=== PATIENT | female | born 1955 | race Caucasian/White ===

== ENCOUNTER 2019-04-07 14:44 | Inpatient (IN) | payer OTHER ==
[~2019-04-07] VITALS: Ht 147.3 cm; Wt 51.6 kg
[2019-04-07 16:02] LABS: BASOPHILS ABSOLUTE AUTO 0.02 K/mm3 (0.00-0.23); BASOPHILS PERCENT AUTO 0 % (0-2); EOSINOPHILS ABSOLUTE AUTO 0.18 K/mm3 (0.00-0.68); EOSINOPHILS PERCENT AUTO 3 % (0-6); Hematocrit 19.1 % (33.0-51.0); Hemoglobin 6.2 g/dL (11.5-16.0); IMMATURE GRAN ABSOLUTE AUTO 0.04 K/mm3 (0.00-0.10); IMMATURE GRAN PERCENT AUTO 1 % (0-1); LYMPHOCYTES PERCENT AUTO 28 % (21-46); MONOCYTES PERCENT AUTO 7 % (4-13); Mean Corpuscular HGB 30.2 pg (26.0-34.0); Mean Corpuscular HGB Conc 32.5 g/dL (31.5-36.5); Mean Corpuscular Volume 93 fL (80-100); Mean Platelet Volume 9.6 fL (9.1-12.4); NEUTROPHILS ABSOLUTE AUTO 3.24 K/mm3 (1.96-9.15); NEUTROPHILS PERCENT AUTO 60 % (41-73); Platelet Count 187 K/mm3 (150-400); RDW Coefficient Variation 15.2 % (11.7-14.2); RDW Standard Deviation 51.8 fL (35.1-46.3); Red Blood Cell Count 2.05 M/mm3 (3.80-5.20); White Blood Cell Count 5.38 K/mm3 (4.00-11.30)
[2019-04-07 16:28] LABS: Magnesium, Blood 1.6 mg/dL (1.6-2.4)
[2019-04-07 17:01] LABS: Alanine Aminotransfer (ALT/SGP 17 U/L (12-78); Albumin, Blood 3.3 g/dL (3.4-5.0); Alk Phos 129 U/L (50-136); Anion Gap 15 mmol/L (6-16); Aspartate Aminotrans (AST/SGOT 20 U/L (12-37); Bilirubin, Total 0.6 mg/dL (0.1-1.0); Blood Urea Nitrogen 117 mg/dL (8-24); Bun/Creatinine Ratio 7.7 (12.0-20.0); CO2, Blood 9 mmol/L (21-32); Calcium, Blood <5.0 mg/dL (8.5-10.1); Chloride, Blood 116 mmol/L (98-108); Globulin, Blood 3.3 g/dL (2.2-4.0); Glomerular Filtration Rate 3 (60-); Glucose, Blood 87 mg/dL (70-99); Potassium, Blood 4.9 mmol/L (3.5-5.5); Sodium, Blood 140 mmol/L (136-145); Total Protein, Blood 6.6 g/dL (6.4-8.2)
[2019-04-07 17:21] LABS: Source, Urine Clean Catch
[2019-04-07 17:24] LABS: Bilirubin, Urine Neg (Neg); Blood, Urine 3+ (Neg); Glucose Qualitative, Urine Neg (Neg); Ketones, Urine Neg (Neg); Leukocyte Esterase, Urine 1+ (Neg); Nitrite, Urine Neg (Neg); Protein, Urine 3+ (Neg); Specific Gravity, Urine 1.015 (1.003-1.022); Urobilinogen, Urine NORM (Normal)
[2019-04-07 17:31] LABS: Appearance, Urine Clear (Clear); Color, Urine Yellow (P-Yellow)
[2019-04-07 17:33] LABS: Bacteria Few /hpf; Squamous Epithelial Cells Few /hpf (Few); Transitional Epithelial Cells Few /hpf (0-Rare)
[2019-04-07] MEDS ORDERED: Prinivil10 MG PO (18:52)
--- NOTE | 2019-04-07 21:30 | NUR ---
ADMIT PT ARRIVES TO PCU 2 FROM ER VIA GURNEY. TRANSFERS WITH STANDBY ASSIST TO HOSPITAL BED WITHOUT DIFFICULTY. PT AOX4. DENIES DIZZINESS/LIGHTHEADEDNESS, OR PAIN AT THIS TIME. BP IS ELEVATED, BUT HAS DECREASED FROM PREVIOUS BPs IN ER. PT SLIGHTLY DYSPNEIC ON EXERTION, O2 SATS OF 99% ON RA. LUNG SOUNDS CLEAR THROUGHOUT. MAEW, NO NOTED WEAKNESS. PPP. NO EDEMA. CARDIAC RHYTHM IS SINUS TACH WITH A RATE OF 110 PER MARKETING DEVELOPER. PT REPORTS THAT SHE HAS FELT FATIGUED OVER LAST COUPLE OF MONTHS AND HAS PROGRESSIVELY GOTTEN MORE SO. REPORTS WEIGHT LOSS OF 40-50 LBS OVER LAST COUPLE MONTHS WITH APPETITE LOSS. ONE UNIT OF PRBCs BROUGHT WITH PT FROM ER AND WILL BEGIN TRANSFUSION MOMENTARILY- BLOOD CONSENT SIGNED AND PLACED IN CHART. PT ORIENTED TO ROOM AND CALL LIGHT SYSTEM. ENCOURAGED TO CALL FOR ASSIST WITH AMBULATION. WILL CONTINUE WITH ADMISSION AND MONITORING. BED IN LOW POSITION,CALL LIGHT IN REACH.
--- NOTE | 2019-04-07 23:30 | NUR ---
PROVIDER TO ROOM DR MCMAHAN TO PT ROOM FOR CONSULTATION AND ASSESSMENT. ORDERED BLADDER SCAN AND REQUESTING RESULTS. PT HAS 124 ML IN BLADDER AT THIS TIME. VERBAL ORDERS RECEIVED FOR 50 MEQ SODIUM BICARB ONE TIME AND TO BEGIN SODIUM BICARB DRIP. WILL INPUT ORDERS AND ADMINISTER.
[2019-04-08 04:08] LABS: Hemoglobin 9.1 g/dL (11.5-16.0)
[2019-04-08 04:32] LABS: CPK Creatine Kinase 431 U/L (26-193); Magnesium, Blood 1.4 mg/dL (1.6-2.4)
[2019-04-08 04:33] LABS: Alanine Aminotransfer (ALT/SGP 17 U/L (12-78); Albumin, Blood 2.8 g/dL (3.4-5.0); Albumin/Globulin Ratio 0.9 (0.8-1.8); Alk Phos 107 U/L (50-136); Anion Gap 18 mmol/L (6-16); Aspartate Aminotrans (AST/SGOT 18 U/L (12-37); Bilirubin, Direct 0.1 mg/dL (0.0-0.3); Bilirubin, Indirect 0.3 mg/dL (0.1-0.7); Bilirubin, Total 0.4 mg/dL (0.1-1.0); Blood Urea Nitrogen 114 mg/dL (8-24); CO2, Blood 12 mmol/L (21-32); Chloride, Blood 116 mmol/L (98-108); Globulin, Blood 3.1 g/dL (2.2-4.0); Glucose, Blood 78 mg/dL (70-99); Potassium, Blood 4.2 mmol/L (3.5-5.5); Sodium, Blood 146 mmol/L (136-145); Total Protein, Blood 5.9 g/dL (6.4-8.2)
[2019-04-08 04:41] LABS: Bun/Creatinine Ratio 7.9 (12.0-20.0); Calcium, Blood 5.2 mg/dL (8.5-10.1); Glomerular Filtration Rate 3 (60-); Phosphorus, Blood 9.2 mg/dL (2.5-4.9)
--- NOTE | 2019-04-08 06:07 | NUR ---
SHIFT SUMMARY PT HAS REMAINED AOX4 THROUGHOUT SHIFT. PLEASANT AND COOPERATIVE WITH CARE. PT MEDICATED ONCE FOR HYPERTENSION THAT DECREASED WITH ORDERED MEDICATION, ALL OTHER VSS. PT AMBULATES WITH STANDBY ASSIST TO RESTROOM WITHOUT DIFFICULTY. PT RECEIVED TWO UNITS PRBCs LAST NIGHT, TOLERATED WELL. LUNG SOUNDS REMAINED T/O NIGHT AND CLEAR POST TRANSFUSIONS. PT REPORTS THAT SHE IS BEGINNING TO FEEL BETTER. NO OTHER CHANGES NOTED FROM INITIAL ASSESSMENT. WILL CONTINUE TO MONITOR AND REPORT TO ONCOMING SHIFT RN. BED IN LOW POSITION, CALL LIGHT IN REACH.
--- NOTE | 2019-04-08 09:15 | NUR ---
NURSING PCU DAYSHIFT: Assumed care of pt at approx 0700. A/O, very pleasant and cooperative w/care. Denies any pain/discomfort at rest. Ambulates w/one staff assist for line management, c/o general weakness. Skin is intact w/no breakdown noted. Tele in place at initial assessment, NSR w/no c/o CP/pressure, SBP 150's prior to a.m. meds, no noted edema. L/S cta t/o O2 sat stable on RA, denies dyspnea, no noted cough. Abd SNT, BT+, voiding w/o difficulty. PIV x2, sodium bicarb infusing at 150cc/hr, mag and calcium gluconate riders infused as ordered. No s/s of acute distress at this time. Seen by manager food and PMD, new d/o received. Pt changed to medical status w/o tele. Denies any current needs or questions regarding plan of care, call light in reach, cont to monitor for any changes.
--- NOTE | 2019-04-08 10:52 | NUR ---
NURSING PCU TRANSFER SUMMARY: No acute changes noted t/o a.m. Seen by PMD, changed to medical status w/o tele. Room assignment received, awaiting report to accepting RN. Brandon to monitor until transfer is completed.
--- NOTE | 2019-04-08 12:15 | NUR ---
PT ARRIVED TO THE MEDICAL FLOOR FROM THE PCU A/OX3, PLEASANT AND COOPERATIVE UP WITH MINIMAL ASSISTANCE, THE PT WAS ORIENTED TO THE ROOM CALL SYSTEM AND LAYOUT, IV FLUIDS RESTARTED, CALL LIGHT IN REACH PT APPEARS TO BE BREATHING EASILY ON RA, DENIES PAIN, I AGREE WITH THE AM ASSESSMENT PERFORMED BY THE SKIRT PANEL ASSEMBLER LEANNE
[2019-04-08 14:15] LABS: Stool Occult Blood Guaiac 1 Neg (Neg)
--- NOTE | 2019-04-08 16:11 | NUR ---
PT IS A/OX3, PLEASANT AND COOPERATIVE, THE PT IS UP WITH STANDBY ASSIST, THE PT DENIES HAVING ANY PAIN AT THIS TIME, THE PT APPEARS TO BE BREATHING EASILY ON RA, THE PT WAS A TRANSFER UP FROM THE PCU TODAY, CALCIUM GLUCONATE AND MAG RIDER WAS GIVEN IN THE PCU PRIOR TO THE TRANSFER, TELE WAS DISCONTINUED, CALL LIGHT IN REACH, WILL CONTINUE TO MONITOR FOR CHANGES
[2019-04-09 05:57] LABS: Hemoglobin 8.7 g/dL (11.5-16.0)
[2019-04-09 06:21] LABS: Magnesium, Blood 1.5 mg/dL (1.6-2.4)
[2019-04-09 06:33] LABS: Albumin, Blood 2.5 g/dL (3.4-5.0); Anion Gap 16 mmol/L (6-16); Blood Urea Nitrogen 108 mg/dL (8-24); Bun/Creatinine Ratio 8.2 (12.0-20.0); CO2, Blood 24 mmol/L (21-32); Chloride, Blood 102 mmol/L (98-108); Glomerular Filtration Rate 3 (60-); Glucose, Blood 114 mg/dL (70-99); Potassium, Blood 3.2 mmol/L (3.5-5.5); Sodium, Blood 142 mmol/L (136-145)
[2019-04-09 06:34] LABS: Calcium, Blood <5.0 mg/dL (8.5-10.1)
[2019-04-09 06:36] LABS: Phosphorus, Blood 8.2 mg/dL (2.5-4.9)
--- NOTE | 2019-04-09 07:00 | NUR ---
SHIFT SUMMARY PT IS A 63 Y/O FEMALE, ADMITTED FOR FRANNY. SHE IS A&O X 4, AND A SBA IN THE ROOM. PT WAS MEDICATED ONCE FOR NAUSEA DURING THE NIGHT WITH PRN ZOFRAN, WHICH CONTROLLED THE NAUSEA WELL. NO COMPLAINTS OF ACUTE PAIN OR SOB. PT RECEIVING D5 + SODIUM BICARB AT 100 ML/HR. VITAL SIGNS STABLE. PT SLEPT WELL DURING THE NIGHT. NO OTHER ACUTE CHANGES NOTED. REPORT GIVEN TO ONCOMING RN.
--- NOTE | 2019-04-09 15:51 | NUR ---
PT IS A/OX3, PLEASANT AND COOPERATIVE, THE PT IS UP WITH MINIMAL ASSIST TO THE BATHROOM, THE PT THIS AM HAD N/V ABOUT 150CC EMISIS, AT BREAKFAST TIME, ZOFRAN WAS GIVEN X1, THE PT DENIES ANY PAIN AND APPEARS TO BE BREATHING EASILY ON RA, THE PT WAS GIVEN ELECTROLYTE REPLACEMENT TODAY AND APPEARS TO HAVE TOLERATED IT WELL, THE PT LOPEZ A CT KUB DONE THIS AFTERNOON, THE PT WAS UP FOR A SHOWER TODAY, CALL LIGHT IN REACH, PT RESTING IN BED AT THIS TIME
--- NOTE | 2019-04-09 19:57 | NUR ---
1930: ASSUMED CAR OF PATIENT. PT SITTING IN BED IN NO APPARENT DISTRESS. RESP EVEN AND UNLABORED. DENIES PAIN/SOB/NAUSEA. #20 LAC C/D/I. PT CALM AND COOPERATIVE WITH CARE, ABLE TO MAKE HER NEEDS KNOWN. CALL MCGOWAN WITHIN REACH.
[2019-04-10 04:45] LABS: Hematocrit 26.5 % (33.0-51.0)
[2019-04-10 05:07] LABS: Magnesium, Blood 1.6 mg/dL (1.6-2.4)
[2019-04-10 05:35] LABS: Albumin, Blood 2.6 g/dL (3.4-5.0); Anion Gap 14 mmol/L (6-16); Blood Urea Nitrogen 101 mg/dL (8-24); Bun/Creatinine Ratio 8.1 (12.0-20.0); CO2, Blood 25 mmol/L (21-32); Calcium, Blood 5.8 mg/dL (8.5-10.1); Chloride, Blood 102 mmol/L (98-108); Glomerular Filtration Rate 3 (60-); Glucose, Blood 90 mg/dL (70-99); Phosphorus, Blood 6.9 mg/dL (2.5-4.9); Potassium, Blood 3.8 mmol/L (3.5-5.5); Sodium, Blood 141 mmol/L (136-145)
--- NOTE | 2019-04-10 08:00 | NUR ---
PT PLEASANT COOP FOLLOWS COMMANDS WELL. A/O DENIES PAIN. H/R REG, NO MURMER NOTED. NO TELE. LUNGS CLEAR RESP EASY, UNLABORED. ON R.A. BT X4 LAST BM THIS AM. VOIDS INDEPENDANT TO BATHROOM. BED IN LOW POSITOIN, CALL LITE IN REACH, CALLS APPROP. NO OTHER CONCERNS AT THIS TIME.
--- NOTE | 2019-04-10 18:33 | NUR ---
PT PLEASANT T/O DAY. DENIES PAIN. AHS BEEN WALKING IN ROOM PER PT. HOPEFUL TO GO HOME TOMORROW. NO OTHER CONCERNS AT THIS TIME. BED IN LOW POSITION, CALL LITE IN REACH, CALLS APPROP
[2019-04-11 04:40] LABS: Hemoglobin 8.6 g/dL (11.5-16.0)
[2019-04-11 04:58] LABS: Magnesium, Blood 1.5 mg/dL (1.6-2.4)
[2019-04-11 05:06] LABS: Albumin, Blood 2.5 g/dL (3.4-5.0); Anion Gap 14 mmol/L (6-16); Blood Urea Nitrogen 98 mg/dL (8-24); Bun/Creatinine Ratio 8.2 (12.0-20.0); CO2, Blood 22 mmol/L (21-32); Calcium, Blood 6.8 mg/dL (8.5-10.1); Chloride, Blood 105 mmol/L (98-108); Glomerular Filtration Rate 3 (60-); Glucose, Blood 86 mg/dL (70-99); Phosphorus, Blood 6.4 mg/dL (2.5-4.9); Potassium, Blood 4.2 mmol/L (3.5-5.5); Sodium, Blood 141 mmol/L (136-145)
--- NOTE | 2019-04-11 05:30 | NUR ---
1930: ASSUMED CARE OF PATIENT. PT APPEARS TO BE FEELING BETTER TODAY. PLEASENT AND COOPERATIVE AND IN NO APPARENT DISTRESS. 0530: RECEIVED cVALUE: CREATININE = 12.0, PRIOR 12.4 RECEIVED NEW ORDERS PER EMAR
--- NOTE | 2019-04-11 18:11 | NUR ---
SHIFT SUMMARY PATIENT IS PLEASANT, ALERT AND ORINTED. NO ACUTE CONCERNS AT THIS TIME. SHE IS CURRENTLY INDEPENDENT IN THE ROOM, PLACED ON IV FLUIDS. SHE WAS DISCONNECTED TO HAVE A SHOWER TODAY. NO HANGES FROM THIS MORNING AT THIS TIME.
--- NOTE | 2019-04-12 04:06 | NUR ---
SHIFT SUMMARY: 63 Y/O FEMALE RESTED COMFORTABLY ALL SHIFT, DENIES PAIN OR NAUSEA, AMBULATED BATHROOM AND BACK WITHOUT ISSUE, VOIDING WITHOUT ISSUES, CHEERFUL, BED IN LOW POSITION, CALL LIGHT AT SIDE.
[2019-04-12 05:15] LABS: Hematocrit 27.1 % (33.0-51.0); Hemoglobin 8.9 g/dL (11.5-16.0)
[2019-04-12 05:39] LABS: Magnesium, Blood 1.7 mg/dL (1.6-2.4)
[2019-04-12 05:54] LABS: Albumin, Blood 2.6 g/dL (3.4-5.0); Anion Gap 13 mmol/L (6-16); Blood Urea Nitrogen 100 mg/dL (8-24); Bun/Creatinine Ratio 8.5 (12.0-20.0); CO2, Blood 21 mmol/L (21-32); Calcium, Blood 7.5 mg/dL (8.5-10.1); Chloride, Blood 106 mmol/L (98-108); Glomerular Filtration Rate 4 (60-); Glucose, Blood 98 mg/dL (70-99); Phosphorus, Blood 6.3 mg/dL (2.5-4.9); Potassium, Blood 4.5 mmol/L (3.5-5.5); Sodium, Blood 140 mmol/L (136-145)
--- NOTE | 2019-04-12 18:28 | NUR ---
SHIFT SUMMARY PATIENT IS VERY PLEASANT, MUCH MORE ALERT TODAY THAN YESTERDAY. SHE IS INDEPENDENT IN THE ROOM, AND HAS A 24 HOUR URINE COLLECTION THAT WAS STARTED AT 1500 ON 04/12/19. IT WILL NEED TO BE COLLECTED AND SENT TO THE LAB AT 1500 ON 04/13/19. CURRENTLY THE PATIENT'S SKIN LOOKS GOOD AND THERE ARE NO CONCERNS WITH HER MUSCULOSKELETAL SYSTEM. SHE DENIES PAIN AT THIS TIME.
--- NOTE | 2019-04-13 04:16 | NUR ---
SHIFT SUMMARY: 63 Y/O FEMALE RESTED COMFORTABLY IN BED WITH NO C/O PAIN OR NAUSEA, 24 HOUR URINE IN PROGRESS (DUE TO BE COMPLETED TODAY AT 1500), DENIES PAIN OR NAUSEA, HAPPY AND COOPERATIVE, GAIT STEADY AND EVEN, BED LOW POSITION, CALL LIGHT AT SIDE.
[2019-04-13 04:47] LABS: Hematocrit 29.1 % (33.0-51.0); Hemoglobin 9.5 g/dL (11.5-16.0)
[2019-04-13 05:13] LABS: Magnesium, Blood 1.7 mg/dL (1.6-2.4)
[2019-04-13 05:17] LABS: Albumin, Blood 2.8 g/dL (3.4-5.0); Anion Gap 14 mmol/L (6-16); Blood Urea Nitrogen 98 mg/dL (8-24); Bun/Creatinine Ratio 9.1 (12.0-20.0); CO2, Blood 18 mmol/L (21-32); Chloride, Blood 108 mmol/L (98-108); Glomerular Filtration Rate 4 (60-); Glucose, Blood 94 mg/dL (70-99); Phosphorus, Blood 6.1 mg/dL (2.5-4.9); Potassium, Blood 4.8 mmol/L (3.5-5.5); Sodium, Blood 140 mmol/L (136-145)
--- NOTE | 2019-04-13 18:41 | NUR ---
PATIENT WENT OUT FOR AN CT OF THE KIDNEY. CONSULT PLACED TO DR. VILLALTA, NO ACUTE ISSUES NOTED FOR PATIENT.
[2019-04-14 04:42] LABS: Hematocrit 26.3 % (33.0-51.0); Hemoglobin 8.7 g/dL (11.5-16.0)
[2019-04-14 05:05] LABS: Magnesium, Blood 1.5 mg/dL (1.6-2.4)
--- NOTE | 2019-04-14 05:05 | NUR ---
SHIFT SUMMARY: PT A&O X4. BP ELEVATED T/O SHIFT- RANGING FROM 160-180 SYSTOLIC. GIVEN SCHED 2100 METOPROLOL AND HYDRALAZINE PER EMAR. INDEPENDENT IN ROOM AND VOIDING WELL. FLUIDS INFUSING AT 50/HR PER EMAR. PT C/O UPPER EPIGASTRIC PRESSURE AND COUGH THIS MORNING. REPORTS THAT THE COUGH STARTED LAST NIGHT. LUNGS CLEAR TO AUSCULTATION. PT DENIES SOB AND CHEST PAIN. NO SWELLING OR EDEMA NOTED. CREATNINE REMAINS HIGH THIS MORNING WITH RESULT OF 10.7.
[2019-04-14 05:07] LABS: Albumin, Blood 2.7 g/dL (3.4-5.0); Anion Gap 11 mmol/L (6-16); Blood Urea Nitrogen 104 mg/dL (8-24); Bun/Creatinine Ratio 9.7 (12.0-20.0); CO2, Blood 22 mmol/L (21-32); Calcium, Blood 7.7 mg/dL (8.5-10.1); Chloride, Blood 106 mmol/L (98-108); Glomerular Filtration Rate 4 (60-); Glucose, Blood 100 mg/dL (70-99); Phosphorus, Blood 5.6 mg/dL (2.5-4.9); Potassium, Blood 4.7 mmol/L (3.5-5.5); Sodium, Blood 139 mmol/L (136-145)
--- NOTE | 2019-04-14 07:57 | NUR ---
TELEPHONE CALL TO HUMZA AND TO DR VILLALTA CELL - LEFT MESSAGES THAT DR MCMAHAN WANTS TO TT DR VILLALTA PRIOR TO PT BEING TAKEN FOR PROCEDURE.
--- NOTE | 2019-04-14 19:10 | NUR ---
SHIFT SUMMARY PT A&OX4, VSS. DR VILLALTA CONSULTED W/DR MCMAHAN AND PT TODAY; PLAN FOR NEPHROSTOMY TUBE L SIDE TOMORROW, PT TO BE NPO AFTER MIDNIGHT. INDEPENDENT TO BRP, VOIDING WELL. IVONNE RENAL DIET, DENIES N&V. DENIES PAIN AT THIS TIME. REPORT GIVEN TO ANISH RUCKER.
[2019-04-15 05:12] LABS: Hematocrit 26.3 % (33.0-51.0); Hemoglobin 8.5 g/dL (11.5-16.0)
[2019-04-15 05:39] LABS: Magnesium, Blood 1.9 mg/dL (1.6-2.4)
[2019-04-15 06:05] LABS: Albumin, Blood 2.6 g/dL (3.4-5.0); Anion Gap 11 mmol/L (6-16); Blood Urea Nitrogen 103 mg/dL (8-24); Bun/Creatinine Ratio 9.4 (12.0-20.0); CO2, Blood 25 mmol/L (21-32); Calcium, Blood 7.6 mg/dL (8.5-10.1); Chloride, Blood 104 mmol/L (98-108); Glomerular Filtration Rate 4 (60-); Glucose, Blood 91 mg/dL (70-99); Phosphorus, Blood 5.8 mg/dL (2.5-4.9); Sodium, Blood 140 mmol/L (136-145)
--- NOTE | 2019-04-15 06:39 | NUR ---
SHIFT SUMMARY PT IS A 63 Y/O FEMALE, ADMITTED FOR ACUTE KIDNEY INJURY. SHE IS A&O X 4, AND INDEPENDENT IN THE ROOM. NO COMPLAINTS OF PAIN, NAUSEA OR SOB, AND PT SLEPT WELL THROUGH THE NIGHT. PT RECEIVED CONTINUOUS FLUIDS, D5 + SODIUM BICARB AT 50 ML/HR. PT HAS BEEN NPO SINCE MIDNIGHT IN PREP FOR A L NEPHROSTOMY PLACEMENT TODAY. BP WAS SLIGHTLY ELEVATED AT 167/88 AT PM VITALS, BUT CAME DOWN TO 147/94 WITH SCHEDULED BP MEDS. ALL OTHER VITALS STABLE. NO OTHER ACUTE CHANGES IN PT CONDITION NOTED. WILL CONTINUE TO MONITOR AND TREAT PER EMAR UNTIL HAND OFF TO DAY SHIFT.
[2019-04-15 08:08] LABS: ANTIGLOMERULAR BM AB 3 units (0-20)
[2019-04-15 14:07] LABS: ANA DIRECT Negative (Negative); ANTIMYELOPEROXIDASE (MPO) ABS <9.0 U/mL (0.0-9.0); ANTIPROTEINASE 3 (PR-3) ABS 8.5 U/mL (0.0-3.5); ATYPICAL PANCA <1:20 titer (Neg:<1:20); CYTOPLASMIC (C-ANCA) <1:20 titer (Neg:<1:20); PERINUCLEAR (P-ANCA) <1:20 titer (Neg:<1:20)
[2019-04-15 15:07] LABS: A/G RATIO 1.2 (0.7-1.7); ALBUMIN 3.1 g/dL (2.9-4.4); ALPHA-1-GLOBULIN 0.3 g/dL (0.0-0.4); ALPHA-2-GLOBULIN 0.9 g/dL (0.4-1.0); BETA GLOBULIN 0.7 g/dL (0.7-1.3); GAMMA GLOBULIN 0.7 g/dL (0.4-1.8); GLOBULIN, TOTAL 2.7 g/dL (2.2-3.9); IMMUNOGLOBULIN A, QN, SERUM 263 mg/dL (87-352); IMMUNOGLOBULIN G, QN, SERUM 684 mg/dL (700-1600); IMMUNOGLOBULIN M, QN, SERUM 51 mg/dL (26-217); M-SPIKE Not Observed g/dL (Not Observed); PROTEIN, TOTAL, SERUM 5.8 g/dL (6.0-8.5)
--- NOTE | 2019-04-15 19:43 | NUR ---
SHIFT SUMMARY PATIENT A&0X4, UP AD MONTEZ IN ROOM. PT LEFT FLOOR FOR NEPHROSTOMY TUBE PLACEMENT BUT CAME BACK WITHOUT TUBE PLACED. RN WAS INFORMED THAT LIKELY THEY WILL TRY TO PLACE IT AGAIN WITH CT ASSISTANCE. 4 SMALL SLIT INCISIONS ON L FLANK LILI, NO DRAINAGE, TENDER, WITH SMALL AMOUNT OF SWELLING AROUND THEM. WHEN PT RETURNED TO ROOM AFTER PROCEDURE, BP WAS HIGH. 184/99 MANUALLY, DR SINGLETON WAS NOTIFIED. SCHEDULED AM NORVASC AND METOPROLOL THAT WERE HELD PREVIOUSLY, WERE GIVEN. BP CAME DOWN TO 159/96 WHICH IS AROUND THE PATIENT'S BASELINE. DR SINGLETON NOTIFIED. COBAN AROUND IV SITE CHANGED. D5/NA BICARB INFUSING. PT STATES SHE HAD A BM TODAY. URINE OUTPUT IS ADEQUATE, URINE HAS BLOOD AND BLOODY CLOTS IN IT.
[2019-04-16 01:58] LABS: Hematocrit 29.8 % (33.0-51.0); Hemoglobin 9.7 g/dL (11.5-16.0)
[2019-04-16 02:01] LABS: Magnesium, Blood 1.9 mg/dL (1.6-2.4)
[2019-04-16 02:03] LABS: Albumin, Blood 2.9 g/dL (3.4-5.0); Anion Gap 10 mmol/L (6-16); Blood Urea Nitrogen 102 mg/dL (8-24); Bun/Creatinine Ratio 9.2 (12.0-20.0); CO2, Blood 27 mmol/L (21-32); Calcium, Blood 7.9 mg/dL (8.5-10.1); Chloride, Blood 102 mmol/L (98-108); Glomerular Filtration Rate 4 (60-); Glucose, Blood 77 mg/dL (70-99); Phosphorus, Blood 6.1 mg/dL (2.5-4.9); Potassium, Blood 4.7 mmol/L (3.5-5.5); Sodium, Blood 139 mmol/L (136-145)
--- NOTE | 2019-04-16 03:36 | NUR ---
~0135 STATES TUBING MUST HAVE BEEN WRAPPED AROUND BLANKETS AND SUBSEQUENTLY PULLED OUT IV
--- NOTE | 2019-04-16 04:50 | NUR ---
SHIFT SUMMARY A/O, ABLE TO MAKE NEEDS KNOWN. COOPERATIVE WITH CARE. CALLS AND ANSWERS QUESTIONS APPROPRIATELY. NO C/O PAIN/DISCOMFORT. HAS BEEN NPO THROUGHOUT THE NIGHT; PREVIOUS SHIFT REPORT STATED THAT PROCEDURE 04/15/[address] NEPHROSTOMY TUBE WAS UNSUCCESSFUL. POSSIBILITY THAT THE TUBE MIGHT BE PLACED UNDER CT GUIDANCE TODAY 04/16/19. HYPERTENSIVE THIS AM; MEDICATED PER EMAR. WILL RE-CHECK TO VERIFY DOWN TREND. NO ACUTE CHANGES OVERNIGHT. UP INDEPENDENTLY TO BATHROOM. NEW IV PLACED TO RFA. CONTINUOUS INFUSION OF NA+ BICARB WITHOUT COMPLICATION. WCTM. REPORT TO ONCOMING RN.
--- NOTE | 2019-04-16 06:03 | NUR ---
0602 PHYSICIAN CORRESPONDENCE CALL PLACED TO DR. MCMAHAN TO NOTIFY OF CRITICAL LAB OF CREATININE; NO ANSWER. DELIVERY PERSON AWARE, IN CASE THERE IS A CALL BACK.
--- NOTE | 2019-04-16 16:11 | NUR ---
ASSUMED CARE: PT REMAINS OUT OF ROOM AT THIS TIME
--- NOTE | 2019-04-16 17:57 | NUR ---
PT RETURNED FROM PROCEDURE. NAUSEATED WITH 100CC YELLOW EMESIS NOTED. DROWSY BUT MAKING NEEDS KNOWN. POST OP VITALS OCCURING AT THIS TIME. LEFT NEPHROSTOMY TUBE WITH MILD MALDONADO DRAINAGE NOTED.
--- NOTE | 2019-04-16 18:05 | NUR ---
SHIFT SUMMARY: PT RETURNED FROM AUTOMOBILE SALES CONSULTANT WITH LEFT NEPHROSTOMY IN PLACE. MALDONADO DRAINAGE NOTED. SITE WITH DRESSING IN PLACE AT THIS TIME. MEDICATED FOR NAUSEA AND PROVIDED ICE. HYPERTENSIVE AT THIS TIME. WILL CONTINUE TO MONITOR WITH POST OP VITALS
--- NOTE | 2019-04-17 04:17 | NUR ---
Shift summary: Pt sleeping most of shift with no c/o discomfort. Nephostomy tube put out about 150 cc fluid. Pt up to BR x 3 during the night.
[2019-04-17 05:08] LABS: Hematocrit 25.2 % (33.0-51.0); Hemoglobin 8.1 g/dL (11.5-16.0)
[2019-04-17 05:42] LABS: Magnesium, Blood 1.9 mg/dL (1.6-2.4)
[2019-04-17 06:01] LABS: Albumin, Blood 2.8 g/dL (3.4-5.0); Anion Gap 12 mmol/L (6-16); Blood Urea Nitrogen 101 mg/dL (8-24); Bun/Creatinine Ratio 9.1 (12.0-20.0); CO2, Blood 26 mmol/L (21-32); Calcium, Blood 7.4 mg/dL (8.5-10.1); Chloride, Blood 102 mmol/L (98-108); Glomerular Filtration Rate 4 (60-); Glucose, Blood 112 mg/dL (70-99); Phosphorus, Blood 6.2 mg/dL (2.5-4.9); Potassium, Blood 4.7 mmol/L (3.5-5.5); Sodium, Blood 140 mmol/L (136-145)
[2019-04-17 12:07] LABS: M-SPIKE, % Not Observed % (Not Observed); PROTEIN,TOTAL,URINE 99.1 mg/dL (Not Estab.)
--- NOTE | 2019-04-17 16:23 | NUR ---
SHIFT SUMMARY PT RESTING QUIETLY, WATCHING TV DURING SHIFT REPORT. ADMITTED FOR FRANNY. PER REPORT, HAD LEFT NEPHROSTOMY TUBE PLACED YESTERDAY. START OF SHIFT DRAINING BLOOD TINGED URINE. 110cc EMPTIED AT 0800. DR MCMAHAN CALLED AT 1300 TO CK ON PT AND WITH NEW ORDERS.L NEPHROSTOMY EMPTIED AGAIN PRIOR TO IV BUMEX. DR MCMAHAN CALLED WITH UPDATE AT 1600, PER ORDERS. NEW ORDERS FOLLOWED; IV BUMEX GIVEN AGAIN. URINE OUT NEPHROSTOMY CLEARED APPROXIMATELY 50% AFTER FIRST BUMEX GIVEN. URINE REMAINS PINK AT TIME OF 2ND DOSE OF BUMEX. IV TO RW STARTED LEAKING. NEW IV PLACED TO TO RFA, INFUSING SODIUM BICARB PER ORDERS. PT HAS BEEN INDEPENDENT TO BTHRM NEEDED. UP TO SHOWER TODAY. VISITOR IN AT THIS TIME. NO C/O. REMAINS HYPERTERSIVE, SEE CHART. MEDS GIVEN PER EMAR. CALL LT IN REACH.
--- NOTE | 2019-04-18 03:58 | NUR ---
Shift summary: Stat creatine ordered by at beginning of shift. Creatinine was 11.1 critical level. No changes from this am. Dr Mabry called with results. Order for bumex and zaroxlyn recieved and given stat as per orders. See i & O. Pt c/o headache and was given tylenol with good results. Nephostomy tube in place. VSS.
--- NOTE | 2019-04-18 04:35 | NUR ---
BP = 174/91. Hydrazaline 20 mg given. Will continue to monitor.
[2019-04-18 05:01] LABS: Hematocrit 25.1 % (33.0-51.0); Hemoglobin 8.1 g/dL (11.5-16.0)
[2019-04-18 05:52] LABS: Magnesium, Blood 1.7 mg/dL (1.6-2.4)
[2019-04-18 06:03] LABS: Albumin, Blood 2.7 g/dL (3.4-5.0); Anion Gap 13 mmol/L (6-16); Blood Urea Nitrogen 95 mg/dL (8-24); Bun/Creatinine Ratio 8.3 (12.0-20.0); CO2, Blood 26 mmol/L (21-32); Calcium, Blood 7.4 mg/dL (8.5-10.1); Chloride, Blood 98 mmol/L (98-108); Glomerular Filtration Rate 4 (60-); Glucose, Blood 98 mg/dL (70-99); Potassium, Blood 4.1 mmol/L (3.5-5.5); Sodium, Blood 137 mmol/L (136-145)
--- NOTE | 2019-04-18 17:32 | NUR ---
SHIFT SUMMARY PATIENT HAVING SEVERAL LOOSE STOOLS. PATIENT STATES IT HAS BEEN SINCE YESTERDAY. L NEPHROSTOMY SITE IS C/D/I, DRAINING CLEAR LIGHT PINK TINGED URINE. PT VOIDING IN THE TOILET FROM R KIDNEY WELL. PT C/O SMALL AMOUNT OF DULL PAIN TO LEFT FLANK, DENIES PAIN MEDS. INSTRUCTED TO CALL IF PAIN WORSENS. PT USES CALL LIGHT APPROPRIATELY. PT DENIES SOB, NAUSEA, OTHER DISCOMFORT. DR MCMAHAN ORDERED PERMACATH PLACEMENT, SURGEON MICROCOMPUTER TECHNICIAN NOTIFIED, MARJ WAS ABLE TO SPEAK TO HIM ON MEDICAL FLOOR. PERMACATH CAN BE PLACED TOMORROW 04/19. PT WILL BE NPO AT MIDNIGHT. FLUID INFUSION STOPPED.
--- NOTE | 2019-04-18 22:17 | NUR ---
BP = 174/91. Hydrazaline 20 mg given
--- NOTE | 2019-04-19 04:23 | NUR ---
Shift summary: Pt given tylenol at hs for headache with adequate relief. Nephostomy tube working well. SEE i & o's. Pt NPO p mn for a mediport placement in am for dialysis. Pt sleeping most of shift.
[2019-04-19 04:37] LABS: Hematocrit 26.5 % (33.0-51.0); Hemoglobin 8.4 g/dL (11.5-16.0)
[2019-04-19 04:59] LABS: Magnesium, Blood 1.8 mg/dL (1.6-2.4)
[2019-04-19 05:29] LABS: Albumin, Blood 2.8 g/dL (3.4-5.0); Anion Gap 13 mmol/L (6-16); Blood Urea Nitrogen 96 mg/dL (8-24); Bun/Creatinine Ratio 8.4 (12.0-20.0); CO2, Blood 28 mmol/L (21-32); Calcium, Blood 7.7 mg/dL (8.5-10.1); Chloride, Blood 99 mmol/L (98-108); Glomerular Filtration Rate 4 (60-); Glucose, Blood 90 mg/dL (70-99); Phosphorus, Blood 6.5 mg/dL (2.5-4.9); Potassium, Blood 4.3 mmol/L (3.5-5.5); Sodium, Blood 140 mmol/L (136-145)
--- NOTE | 2019-04-19 10:15 | NUR ---
FIRST RUN HEMODIALYSIS TODAY PER DR MCMAHAN'S ORDER. RIGHT CHEST CVC PLACED THIS AM BY DR SAWYER AND CONFIRMED BY XRAY. HEPATITIS PROFILE ORDERED WITH AM LABS.
--- NOTE | 2019-04-19 17:46 | NUR ---
SHIFT SUMMARY PATIENT HAD THE PERMACATH PLACEMENT TODAY IN R UPPER CHEST, RIGHT AFTER THAT SHE RECEIVED DIALYSIS. SHE WAS OFF THE FLOOR FROM ABOUT 0815 TO 1300. PATIENT HAS SOME BLOOD UNDER PERMACATH TEGADERM DRESSING, GAUZE PLACED UNDERNEATH IN CASE OF DRAINAGE. PATIENT STATES SHE FEELS GOOD, DENIES DIZZINESS OR SOB. PT C/O 2/10 PAIN TO R CHEST SURGICAL SITE. VSS, BP IMPROVED FROM WHAT IT HAS BEEN THE LAST FEW DAYS. PT STATES HER DIARRHEA ISSUE HAS IMPROVED. PATIENT DENIES NAUSEA AND IS ABLE TO EAT SOME LUNCH, HOWEVER IN THE LAST FEW WEEKS/MONTHS SHE HAS HAD FREQUENT NAUSEA.
[2019-04-20 04:45] LABS: Hemoglobin 7.6 g/dL (11.5-16.0)
[2019-04-20 05:05] LABS: Albumin, Blood 2.5 g/dL (3.4-5.0); Anion Gap 9 mmol/L (6-16); Blood Urea Nitrogen 58 mg/dL (8-24); Bun/Creatinine Ratio 7.3 (12.0-20.0); CO2, Blood 31 mmol/L (21-32); Calcium, Blood 7.8 mg/dL (8.5-10.1); Chloride, Blood 99 mmol/L (98-108); Creatinine, Blood 7.93 mg/dL (0.40-1.00); Glomerular Filtration Rate 5 (60-); Glucose, Blood 90 mg/dL (70-99); Magnesium, Blood 1.7 mg/dL (1.6-2.4); Phosphorus, Blood 4.7 mg/dL (2.5-4.9); Sodium, Blood 139 mmol/L (136-145)
--- NOTE | 2019-04-20 06:03 | NUR ---
Shift summary: Pt did well overnight. States she's feeling beter. Creatinine down to 7.9. permacath site clean dry and intact. Neprostomy tube in place draing light pink urine. Pt anticipating a d/c today if dialysis can be arranged on a holiday,.
--- NOTE | 2019-04-20 09:19 | NUR ---
PT TAKEN TO DIALYSIS AT 0915, WHEELED DOWN IN BED.
--- NOTE | 2019-04-20 16:56 | NUR ---
PT HAS BEEN AOX4 AND COOPERATIVE OF CARE.INDEPENDENT IN ROOM AND CALLS APPROPRIATELY. PT WAS OUT OF HER ROOM FOR DIALYSIS FOR THE EARLIER PART OF THE DAY. SINCE ARRIVING BACK PT HAS BEEN RESTING IN BED. PT DID REPORT PAIN AROUND HER L NEPHROSTOMY BAG. BAG WAS EMPTIED AND PT TREATED PER EMAR. PT REPORTED THE TREATMENT WAS EFFECTIVE AT THIS TIME. WILL CONTINUE TO MONITOR.
[2019-04-21 04:26] LABS: Hematocrit 33.7 % (33.0-51.0)
[2019-04-21 04:48] LABS: Albumin, Blood 2.7 g/dL (3.4-5.0); Anion Gap 8 mmol/L (6-16); Blood Urea Nitrogen 34 mg/dL (8-24); Bun/Creatinine Ratio 6.2 (12.0-20.0); CO2, Blood 31 mmol/L (21-32); Calcium, Blood 8.9 mg/dL (8.5-10.1); Chloride, Blood 97 mmol/L (98-108); Creatinine, Blood 5.52 mg/dL (0.40-1.00); Glomerular Filtration Rate 8 (60-); Glucose, Blood 98 mg/dL (70-99); Magnesium, Blood 1.7 mg/dL (1.6-2.4); Phosphorus, Blood 3.6 mg/dL (2.5-4.9); Potassium, Blood 3.8 mmol/L (3.5-5.5); Sodium, Blood 136 mmol/L (136-145)
--- NOTE | 2019-04-21 06:04 | NUR ---
SHIFT SUMMARY: PATIENT HAS BEEN AOX3 COOPERATIVE AND INDEPENDANT IN THE ROOM. NEPHROSTOMY TUBE ATTACHED TO DRAINAGE BAG WITH PINK TINGED URINE, PATENT AND DRAINING. REPORTS MILD PAIN AROUND THE NEPHROSTOMY TUBE AND OCCATIONALLY RADIATES AROUND TO ABDOMIN. TYLENOL GIVEN AND ALSO GIVEN FOR MILD TEMP THAT REACHED UP TO 100.3 TONIGHT, REASSESS SHOWED 98.7. BP HAS BEEN HYPERTENSIVE REACHING UP TO 184/107 TONIGHT, ASYMPTOMATIC WITH THIS, APROSOLINE WAS GIVEN. REPEAT BP WAS MANUAL AT 160/92, THEN SHE CLIMBED BACK UP TO THE 184/107 WITH MILD FEVER OF 99.2. DISCUSSED WITH CHARGE SPARKLE RUCKER, WHO REPORTS THIS PATIENT HAS BEEN LIVING IN THE [place]IGH LEVELS. TO REPORT THIS TO DR. MCMAHAN WHEN HE ARRIVES IN THE AM. WILL CONTINUE TO MONITOR HER, UNTIL DAY SHIFT RN COMES IN TO SEE HER.
--- NOTE | 2019-04-21 07:12 | NUR ---
ASSUMED CARE OF PT- BEDSIDE REPORT COMPLETED WITH NIGHT CHAIM THOMPSON. PT ALERT AND ORIENTED AND PARTICIPATED IN REPORT. PER REPORT PT HAS A NEW NEPHROSTOMY PATENT AND DRAINING. PT IS INDEPENDENT IN THE ROOM. PT HAS A PERMACATH IN THE RIGHT CHEST THAT HAD THE DRESSING CHANGED YESTERDAY, MORE BLEEDING NOTED UNDER THE NEW DRESSING APPEARS TO HAVE CLOTTED OFF WILL CTM. PT HAD HIGH BPS (SBP 180'S) MEDICATED WITH HYDRALIZINE CAME DOWN TO THE 160'S THEN WENT RIGHT BACK UP PER REPORT. PT HAD A LOW GRADE TEMP HIGH 100.3 MEDICATED WITH TYLENOL AND TEMP AND BP WENT DOWN. PT CURRENTLY IN BED, CALL LIGHT IN REACH NO S&S OF DISTRESS NOTED AT THIS TIME WILL CTM.
--- NOTE | 2019-04-21 12:49 | NUR ---
SHIFT SUMMARY- REPORT GIVEN TO CHAIM LUGO. PT ALERT AND ORINETED AND INDEPENDENT IN THE ROOM. NO C/O PAIN AT THIS TIME. PT COMPLETED DIALYSIS 1500ML OFF EMPTIED NEPHROSTOMY 250ML OF LIGHT PINK URINE. PT CONTINENT OF BLADDER AND JUST VOIDED 300ML OF CLEAR YELLOW URINE. PERMACATH IN LEFT CHEST HAS A BLOOD CLOT UNDER THE DRESSING PER OCCUPATIONAL THERAPIST HOME BASED DELONDA SHE WILL MANAGE THE DRESSING DO NOT CHANGE.
[2019-04-21 13:07] LABS: HBSAG SCREEN Negative (Negative); HEP A AB, IGM Negative (Negative); HEP B CORE AB, IGM Negative (Negative); HEP C VIRUS AB 0.1 (0.0-0.9)
--- NOTE | 2019-04-21 18:51 | NUR ---
no acute changes noted, no current complaints of pain or discomfort noted. permacath dressing is intact with some bleeding noted from placement. nephrostomy is intact and draining pink tinged urine. no other issues is noted.
--- NOTE | 2019-04-22 03:44 | NUR ---
SHIFT SUMMARY PT ADMITTED FOR ACUTE KIDNEY INJURY. FULL CODE. RENAL DIET-120 GRAMS PROTEIN. KEEP HOB GREATER THEN 45 DEGREES WHEN IN BED. PT HAS L NEPHROSTOMY-MAINTAIN WITHOUT KINKS. MAINTAIN DRAINAGE TO GRAVITY COLLECTION SYSTEM. PT IS HD WITH NEW PERMICATH TO R UPPER CHEST. IND IN ROOM. 20G IV TO R FA. TAKES MEDICATIOS WHOLE. HAPARIN FOR DVT PROPHYLAXIS. PT DENIED C/O PAIN SO FAR THIS SHIFT. HAS APPEARED TO SLEEP COMFORTABLY SO FAR THIS SHIFT WITH NO APPARENT SIGNS OF ACUTE DISTRESS. ABLE TO MAKE NEEDS KNOWN AND CALL LIGHT IN REACH.
--- NOTE | 2019-04-22 04:30 | NUR ---
HIGH BP PT WITH BP GREATER THEN 200 SYSTOLIC, 10 MG HYDRALIZINE ADMINISTERED PER EMAR FOR SYSTOLIC GREATER THEN 160. RE-CHECK BP STILL GREATER THEN 190 SYSTOLIC. MD AWARE OF INCREASED BLOOD PRESSURES. WILL CONTINUE TO MONITOR.
[2019-04-22 04:37] LABS: Hemoglobin 12.5 g/dL (11.5-16.0)
[2019-04-22 04:54] LABS: Albumin, Blood 2.7 g/dL (3.4-5.0); Anion Gap 8 mmol/L (6-16); Blood Urea Nitrogen 26 mg/dL (8-24); Bun/Creatinine Ratio 5.5 (12.0-20.0); CO2, Blood 31 mmol/L (21-32); Calcium, Blood 9.2 mg/dL (8.5-10.1); Chloride, Blood 98 mmol/L (98-108); Creatinine, Blood 4.69 mg/dL (0.40-1.00); Glomerular Filtration Rate 10 (60-); Glucose, Blood 97 mg/dL (70-99); Magnesium, Blood 1.9 mg/dL (1.6-2.4); Phosphorus, Blood 3.6 mg/dL (2.5-4.9); Potassium, Blood 3.6 mmol/L (3.5-5.5); Sodium, Blood 137 mmol/L (136-145)
[2019-04-22] MEDS ORDERED: ACET325 PO (14:39)
[2019-04-22] MEDS ORDERED: Amlodipine Besy10 MG PO (14:40)
[2019-04-22] MEDS ORDERED: Calcitriol0.5 MCG PO (14:41)
[2019-04-22] MEDS ORDERED: Oyster Shell C500 MG PO (14:41)
[2019-04-22] MEDS ORDERED: LOSA25 PO (14:42)
[2019-04-22] MEDS ORDERED: HYDR10 PO (14:46)
[2019-04-22] MEDS ORDERED: MAG6464 MG PO (14:49)
[2019-04-22] MEDS ORDERED: METO25 PO (14:51)
[2019-04-22] MEDS ORDERED: ONDA4ODT MM (14:52)
[2019-04-22] MEDS ORDERED: PANT20 PO (14:53)
[2019-04-22] MEDS ORDERED: Vitamin D2000 UNIT PO (14:54)
--- NOTE | 2019-04-22 16:02 | NUR ---
Supportive visit with patient. Review of symptoms, pt complaining of some general discomfort and loose stools then constipation. We reviewed the benefits of dialysis and possible trajectory of care plan and what to prepare for at the clinic. Pt expresses financial stress and wanting to work. Review of fluid balance. review roles of dialysis clincal staff and how supportive they are to their clients
--- NOTE | 2019-04-22 17:19 | NUR ---
SHIFT SUMMARY PT HAS HAD NO COMPLAINTS THIS SHIFT. PT HAD DIALYSIS THIS AM. NEPHROSTOMY PATENT AND DRAINING URINE. URINE IS MORE RED THIS EVENING THEN THIS AM. NO COMPLAINTS OF PAIN THIS SHIFT. BEAD PICKER WORKING ON GETTING PT INSURANCE FOR DISCHARGE TO RECEIVE DIALYSIS AT OUTPT. CALL LIGHT IN REACH. WILL CONTINUE TO MONITOR AND REPORT TO ONCOMING RN.
--- NOTE | 2019-04-23 03:42 | NUR ---
SHIFT SUMMARY: PT IS ALERT AND ORIENTED. PT IS CALM AND COOPERATIVE WITH CARE. PT CALLS APPROPRIATELY. PT IS INDEPENDENT IN THE ROOM. PT DENIES PAIN, NAUSEA, VOMITING, AND SOB. PT SLEPT MUCH OF THE NIGHT WHEN NOT DISTURBED. NO ACUTE CHANGES OR COMPLICATIONS THIS SHIFT. BED IN LOW POSITION, CALL LIGHT WITHIN REACH. WILL CONTINUE TO MONITOR.
[2019-04-23 04:49] LABS: Hematocrit 33.4 % (33.0-51.0); Hemoglobin 10.8 g/dL (11.5-16.0); Mean Corpuscular HGB 29.5 pg (26.0-34.0); Mean Corpuscular HGB Conc 32.3 g/dL (31.5-36.5); Mean Corpuscular Volume 91 fL (80-100); Mean Platelet Volume 9.9 fL (9.1-12.4); Platelet Count 220 K/mm3 (150-400); RDW Coefficient Variation 13.9 % (11.7-14.2); RDW Standard Deviation 47.2 fL (35.1-46.3); Red Blood Cell Count 3.66 M/mm3 (3.80-5.20); White Blood Cell Count 13.05 K/mm3 (4.00-11.30)
[2019-04-23 05:08] LABS: Albumin, Blood 2.5 g/dL (3.4-5.0); Anion Gap 6 mmol/L (6-16); Blood Urea Nitrogen 26 mg/dL (8-24); Bun/Creatinine Ratio 5.4 (12.0-20.0); CO2, Blood 33 mmol/L (21-32); Calcium, Blood 8.8 mg/dL (8.5-10.1); Chloride, Blood 98 mmol/L (98-108); Creatinine, Blood 4.82 mg/dL (0.40-1.00); Glomerular Filtration Rate 10 (60-); Glucose, Blood 93 mg/dL (70-99); Magnesium, Blood 1.9 mg/dL (1.6-2.4); Phosphorus, Blood 3.2 mg/dL (2.5-4.9); Potassium, Blood 3.4 mmol/L (3.5-5.5); Sodium, Blood 137 mmol/L (136-145)
--- NOTE | 2019-04-23 17:18 | NUR ---
called to meet with patient for supportive care. Patient is awaiting setting insurance and follow up outpatient care for dialysis. She is overwhelmed by her future neeeds and inablitiy to work. Review of patient social needs and understanding of cre needs. pt lives in [place] and rents a small house from her employer. She had to quit her second job due to illness. She has no funds and has a car payment. She wanted to discharge so she can go back to work. had a difficult conversation about her health needs. She has not asked her son for help he is employed but has limited funds. She does not want to burden him. Advised her time to rally friends and family to help so she heals better and has support. Review whent three days a week dialysis involves, review of medications and physician appointments. Review of symptoms she has been struggling with nausea. Review strategies of care with case briefer. Helped pt goe through her bills and gave her a list of things to do so she can feel some control and autonomy. She states she feels helpless. Tomorrow ludmila will call her [employer] for benefits and to negotiate rent. she will call [employer]. Weston will call [facility] for advised on unemployment and disability and a food card. suggested she call her [employer] to update them on her illness. She will speak with her family. sales floor manager has been working with perinatal social worker at [facility] suggest she update dr Granado office to see it his staff knows of communtiy resources available until pt intake. will continue to follow pt for supportive care
--- NOTE | 2019-04-23 18:02 | NUR ---
SHIFT SUMMARY PT HAS HAD NO COMPLAINTS THIS SHIFT. NO DIALYSIS TODAY. PT'S LEFT NEPHROSTOMY PUTTING OUT PINK-TINGED YELLOW URINE. NO CHANGES THIS SHIFT. MANAGER GALLERY AND PALLIATIVE CARE RN WORKING ON GETTING PT FINANCIAL ASSISTANCE. PT UNABLE TO DISCHARGE UNTIL ABLE TO GET DIALYSIS AN OUTPT. CALL LIGHT IN REACH. WILL CONTINUE TO MONITOR AND REPORT TO ONCOMING RN.
[2019-04-24 04:34] LABS: Hematocrit 32.7 % (33.0-51.0); Hemoglobin 10.6 g/dL (11.5-16.0); Mean Corpuscular HGB 29.9 pg (26.0-34.0); Mean Corpuscular HGB Conc 32.4 g/dL (31.5-36.5); Mean Corpuscular Volume 92 fL (80-100); Mean Platelet Volume 9.2 fL (9.1-12.4); Platelet Count 215 K/mm3 (150-400); RDW Coefficient Variation 13.8 % (11.7-14.2); RDW Standard Deviation 47.5 fL (35.1-46.3); Red Blood Cell Count 3.54 M/mm3 (3.80-5.20)
--- NOTE | 2019-04-24 04:44 | NUR ---
SUMMARY NO ACUTE CHANGES NOTED THROUGH THE NIGHT. PT IS INDEPENDENT IN THR ROOM. NEPHROSTOMY AND PERMA CATH DRSG'S REMAIN C/D/I. NO C/O PAIN. PT CALLS FOR ASSISTANCE PRN. CALL LIGHT IN REACH.
[2019-04-24 05:00] LABS: Albumin, Blood 2.6 g/dL (3.4-5.0); Anion Gap 9 mmol/L (6-16); Blood Urea Nitrogen 48 mg/dL (8-24); Bun/Creatinine Ratio 6.9 (12.0-20.0); CO2, Blood 29 mmol/L (21-32); Calcium, Blood 8.5 mg/dL (8.5-10.1); Chloride, Blood 98 mmol/L (98-108); Creatinine, Blood 6.97 mg/dL (0.40-1.00); Glomerular Filtration Rate 6 (60-); Glucose, Blood 98 mg/dL (70-99); Phosphorus, Blood 3.9 mg/dL (2.5-4.9); Potassium, Blood 3.5 mmol/L (3.5-5.5); Sodium, Blood 136 mmol/L (136-145)
--- NOTE | 2019-04-24 18:28 | NUR ---
PATIENT A/OX4, UP INDPENDENTLY IN ROOM. VSS, ON RA. WENT DOWN FOR DIALYSIS TODAY, PERM CATH TO R CHEST WNL. PATIENT DENIES ANY PAIN OR DISCOMFORT. L NEPHROSTOMY DRAINING PINK TINGED URINE AND PATIENT CONTINUES TO VOID. SKIN INTACT. CALM AND COOPERATIVE WITH CARE, CALLS APPROPRIATELY FOR ASSISTANCE. AWAITING INSURANCE COVERAGE IN ORDER TO RECEIVE OUTPATIENT DIALYSIS. 20G IV TO R AC PLACED TODAY SO THAT PATIENT COULD RECEIVE IV ROCEPHIN X3 DAYS FOR UTI.
--- NOTE | 2019-04-25 04:46 | NUR ---
SHIFT SUMMARY PT HAS SLEPT T/O SHIFT WITHOUT COMPLAINT. PT CURRENTLY SLEEPING AND BREATHING EASY. CALL LIGHT IN REACH.
[2019-04-25 05:17] LABS: BASOPHILS ABSOLUTE AUTO 0.05 K/mm3 (0.00-0.23); BASOPHILS PERCENT AUTO 1 % (0-2); EOSINOPHILS ABSOLUTE AUTO 0.45 K/mm3 (0.00-0.68); EOSINOPHILS PERCENT AUTO 6 % (0-6); Hematocrit 33.7 % (33.0-51.0); Hemoglobin 10.7 g/dL (11.5-16.0); IMMATURE GRAN ABSOLUTE AUTO 0.06 K/mm3 (0.00-0.10); IMMATURE GRAN PERCENT AUTO 1 % (0-1); LYMPHOCYTES ABSOLUTE AUTO 1.72 K/mm3 (0.84-5.20); LYMPHOCYTES PERCENT AUTO 22 % (21-46); MONOCYTES ABSOLUTE AUTO 0.85 K/mm3 (0.16-1.47); MONOCYTES PERCENT AUTO 11 % (4-13); Mean Corpuscular HGB 29.9 pg (26.0-34.0); Mean Corpuscular HGB Conc 31.8 g/dL (31.5-36.5); Mean Corpuscular Volume 94 fL (80-100); Mean Platelet Volume 9.8 fL (9.1-12.4); NEUTROPHILS ABSOLUTE AUTO 4.56 K/mm3 (1.96-9.15); NEUTROPHILS PERCENT AUTO 59 % (41-73); Platelet Count 230 K/mm3 (150-400); RDW Coefficient Variation 13.8 % (11.7-14.2); RDW Standard Deviation 47.7 fL (35.1-46.3); Red Blood Cell Count 3.58 M/mm3 (3.80-5.20); White Blood Cell Count 7.69 K/mm3 (4.00-11.30)
[2019-04-25 05:47] LABS: Albumin, Blood 2.5 g/dL (3.4-5.0); Anion Gap 8 mmol/L (6-16); Blood Urea Nitrogen 37 mg/dL (8-24); Bun/Creatinine Ratio 6.9 (12.0-20.0); CO2, Blood 30 mmol/L (21-32); Calcium, Blood 8.6 mg/dL (8.5-10.1); Chloride, Blood 100 mmol/L (98-108); Glomerular Filtration Rate 9 (60-); Glucose, Blood 91 mg/dL (70-99); Phosphorus, Blood 3.6 mg/dL (2.5-4.9); Potassium, Blood 4.2 mmol/L (3.5-5.5); Sodium, Blood 138 mmol/L (136-145)
--- NOTE | 2019-04-25 18:16 | NUR ---
SHIFT SUMMARY: PT HAS BEEN A/O X 4 ALL DAY WITH NO C/O PAIN. SHE IS PLEASANT AND COOPERATIVE WITH CARE. THERE WAS NO DIALYSIS SCHEDULED FOR TODAY AND DR MCMAHAN SAW HER THIS MORNING WITH NO NEW ORDERS NOTED. IV ABO INFUSED ORDERED WITH NO ISSUES OBSERVED. PT WAS ASSISTED WITH SET UP IN THE SHOWER. PT IS NOW RESTING IN BED AND CALLS APPROPRIATELY WHEN NEEDED.
--- NOTE | 2019-04-26 04:25 | NUR ---
SHIFT SUMMARY NO ISSUES. PT SLEPT T/O SHIFT. PT CURRENTLY SLEEPING. CALL LIGHT IN REACH.
[2019-04-26 04:27] LABS: Hematocrit 33.9 % (33.0-51.0); Hemoglobin 10.7 g/dL (11.5-16.0)
[2019-04-26 04:50] LABS: Magnesium, Blood 2.1 mg/dL (1.6-2.4)
[2019-04-26 04:51] LABS: Albumin, Blood 2.6 g/dL (3.4-5.0); Anion Gap 11 mmol/L (6-16); Blood Urea Nitrogen 58 mg/dL (8-24); Bun/Creatinine Ratio 7.6 (12.0-20.0); CO2, Blood 25 mmol/L (21-32); Calcium, Blood 8.7 mg/dL (8.5-10.1); Chloride, Blood 102 mmol/L (98-108); Creatinine, Blood 7.59 mg/dL (0.40-1.00); Glomerular Filtration Rate 6 (60-); Glucose, Blood 90 mg/dL (70-99); Phosphorus, Blood 4.4 mg/dL (2.5-4.9); Potassium, Blood 4.8 mmol/L (3.5-5.5); Sodium, Blood 138 mmol/L (136-145)
--- NOTE | 2019-04-26 14:37 | NUR ---
assisted pt with [employer] application. some adult coloring art for diversion. affect bright today and tolerated dialysis
--- NOTE | 2019-04-26 15:56 | NUR ---
PT HAS HYPERTENSION THIS AFTERNOON WITH READINGS OF 185/113, 159/101, 154/91. PT DENIES ANY SYMPTOMS. PT STATES THAT HER BP MEDS ARE MANAGED BY DR MCMAHAN. DR MCMAHAN NOTIFIED VIA PHONE AND GAVE NEW ORDERS FOR LOPRESSOR AND CLONIDINE REFLECTED ON OCT AND ASKED THAT THE FIRST DOSE OF CLONIDINE BE GIVEN NOW. PT MADE AWARE AND AGREES WITH TX PLAN.
--- NOTE | 2019-04-26 17:50 | NUR ---
SHIFT SUMMARY: PT IS A/O X 4 WITH NO C/O PAIN TODAY. SHE WENT TO DIALYSIS THIS MORNING AND RETURNED TO COMPLETE HER IV ABO. PT SON VISITED AT BED SIDE THIS AFTERNOON. PT PM BP WAS ELEVATED AND DR MCMAHAN WAS NOTIFIED AND GAVE NEW ORDERS REFLECTED ON OCT. PT DENIES ANY LOPEZ OR DIZZINESS AND IS LAYING IN BED WATCHING MOVIES. PT CALLS FOR HELP WHEN NEEDED.
[2019-04-27 04:41] LABS: Hematocrit 34.9 % (33.0-51.0); Hemoglobin 11.2 g/dL (11.5-16.0); Mean Corpuscular HGB 30.1 pg (26.0-34.0); Mean Corpuscular HGB Conc 32.1 g/dL (31.5-36.5); Mean Corpuscular Volume 94 fL (80-100); Mean Platelet Volume 9.9 fL (9.1-12.4); Platelet Count 245 K/mm3 (150-400); RDW Coefficient Variation 13.5 % (11.7-14.2); RDW Standard Deviation 46.5 fL (35.1-46.3); Red Blood Cell Count 3.72 M/mm3 (3.80-5.20); White Blood Cell Count 6.22 K/mm3 (4.00-11.30)
--- NOTE | 2019-04-27 04:57 | NUR ---
SHIFT SUMMARY NO PROBLEMS NOTED. PT SLEPT T/O SHIFT. PT IS CURRENTLY SLEEPING AND BREATHING EASY. CALL LIGHT IN REACH.
[2019-04-27 05:10] LABS: Albumin, Blood 2.7 g/dL (3.4-5.0); Anion Gap 9 mmol/L (6-16); Blood Urea Nitrogen 40 mg/dL (8-24); Bun/Creatinine Ratio 6.6 (12.0-20.0); CO2, Blood 30 mmol/L (21-32); Chloride, Blood 96 mmol/L (98-108); Creatinine, Blood 6.07 mg/dL (0.40-1.00); Glomerular Filtration Rate 7 (60-); Glucose, Blood 97 mg/dL (70-99); Phosphorus, Blood 4.5 mg/dL (2.5-4.9); Potassium, Blood 4.8 mmol/L (3.5-5.5); Sodium, Blood 135 mmol/L (136-145)
--- NOTE | 2019-04-27 17:21 | NUR ---
SHIFT SUMMARY: PT HAS BEEN A/O X 4 AT BASELINE TODAY WITH NO C/O PAIN OR DISCOMFORT. PT WAS NOT SCHEDULED FOR DIALYSIS TODAY BUT MOST LIKELY WILL GO TOMORROW. NEPHROSTOMY TUBE REMAINS INTACT TO LEFT FLANK WITH CLAER YELLOW URINE IN BAG. DIALYSIS PORT TO RIGHT UPPER CHEST IS CDI. PT HAS HAD VISITORS THROUGHOUT THE DAY AND CALLS APPROPRIATELY FOR HELP WHEN NEEDED.
--- NOTE | 2019-04-28 04:33 | NUR ---
SHIFT SUMMARY PT HAD NO ISSUES NOTED DURING SHIFT. PT HAS SLEPT WELL WITH NO COMPLAINTS. PT CURRENTLY SLEEPING IN NO DISTRESS. CALL LIGHT IN REACH.
[2019-04-28 04:56] LABS: BASOPHILS ABSOLUTE AUTO 0.05 K/mm3 (0.00-0.23); BASOPHILS PERCENT AUTO 1 % (0-2); EOSINOPHILS PERCENT AUTO 7 % (0-6); Hematocrit 33.6 % (33.0-51.0); Hemoglobin 10.9 g/dL (11.5-16.0); IMMATURE GRAN ABSOLUTE AUTO 0.27 K/mm3 (0.00-0.10); IMMATURE GRAN PERCENT AUTO 4 % (0-1); LYMPHOCYTES ABSOLUTE AUTO 1.61 K/mm3 (0.84-5.20); LYMPHOCYTES PERCENT AUTO 22 % (21-46); MONOCYTES PERCENT AUTO 12 % (4-13); Mean Corpuscular HGB Conc 32.4 g/dL (31.5-36.5); Mean Corpuscular Volume 93 fL (80-100); Mean Platelet Volume 9.6 fL (9.1-12.4); NEUTROPHILS ABSOLUTE AUTO 3.95 K/mm3 (1.96-9.15); NEUTROPHILS PERCENT AUTO 54 % (41-73); Platelet Count 241 K/mm3 (150-400); RDW Coefficient Variation 13.4 % (11.7-14.2); RDW Standard Deviation 45.3 fL (35.1-46.3); Red Blood Cell Count 3.63 M/mm3 (3.80-5.20); White Blood Cell Count 7.28 K/mm3 (4.00-11.30)
[2019-04-28 05:21] LABS: Magnesium, Blood 1.9 mg/dL (1.6-2.4)
[2019-04-28 05:23] LABS: Albumin, Blood 2.6 g/dL (3.4-5.0); Anion Gap 11 mmol/L (6-16); Blood Urea Nitrogen 63 mg/dL (8-24); Bun/Creatinine Ratio 8.7 (12.0-20.0); CO2, Blood 26 mmol/L (21-32); Calcium, Blood 8.4 mg/dL (8.5-10.1); Chloride, Blood 95 mmol/L (98-108); Creatinine, Blood 7.26 mg/dL (0.40-1.00); Glomerular Filtration Rate 6 (60-); Glucose, Blood 95 mg/dL (70-99); Phosphorus, Blood 5.4 mg/dL (2.5-4.9); Potassium, Blood 5.1 mmol/L (3.5-5.5); Sodium, Blood 132 mmol/L (136-145)
--- NOTE | 2019-04-28 17:39 | NUR ---
SHIFT SUMMARY: PT IS A/O X 4 AT BASELINE TODAY WITH NO C/O PAIN. SHE HAS BEEN UP WATCHING VIDEOS ON HER LAPTOP AND KNITTING. PT WENT TO DIALYSIS MED MORNING AND RETURNED JUST AFTER LUNCH. DIALYSIS PORT TO RIGHT CHEST IS CDI. AND NEPHROSTOMY TUBE IS IN PATENT WITH CLEAR YELLOW URINE OUTPUT. PT IS IND IN HER ROOM AND IS ABLE TO MAKE HER NEEDS KNOWN.
--- NOTE | 2019-04-28 18:41 | NUR ---
Spiritual Care intial note: Hannah was welcoming of companionship and conversation. She is a Yarsani and was appreciaitive of prayer. She admits she is fearful of her future, but also states she has "good friends and great children" for support. Hannah tells me that she is bewildered as to what happened to her kidneys. "I have lived a healthy lifestyle...I don't know why this is happening." Hannah responded well to spiritual grief counselor, and she will benefit from continued out-patient grief counselor of some sort. Her life has certainly been turned upside down and her future is uncertain. I will continue to see Hannah as schedule permits.
--- NOTE | 2019-04-29 04:20 | NUR ---
Shift summary. Pt slept most of shift without c/o discomfort. given tylenol at hs for headache with adequate relief. Nephostomy tube in place draining a normal yellow color. Pt awaiting resolution of insurance issues before getting discharged.
[2019-04-29 04:49] LABS: Hematocrit 39.2 % (33.0-51.0); Hemoglobin 12.4 g/dL (11.5-16.0); Mean Corpuscular HGB 30.2 pg (26.0-34.0); Mean Corpuscular HGB Conc 31.6 g/dL (31.5-36.5); Mean Corpuscular Volume 95 fL (80-100); Mean Platelet Volume 9.7 fL (9.1-12.4); Platelet Count 231 K/mm3 (150-400); RDW Coefficient Variation 13.6 % (11.7-14.2); RDW Standard Deviation 46.8 fL (35.1-46.3); Red Blood Cell Count 4.11 M/mm3 (3.80-5.20); White Blood Cell Count 7.55 K/mm3 (4.00-11.30)
[2019-04-29 05:07] LABS: Albumin, Blood 2.7 g/dL (3.4-5.0); Anion Gap 8 mmol/L (6-16); Blood Urea Nitrogen 44 mg/dL (8-24); CO2, Blood 28 mmol/L (21-32); Calcium, Blood 8.6 mg/dL (8.5-10.1); Chloride, Blood 103 mmol/L (98-108); Creatinine, Blood 5.51 mg/dL (0.40-1.00); Glomerular Filtration Rate 8 (60-); Glucose, Blood 99 mg/dL (70-99); Phosphorus, Blood 5.1 mg/dL (2.5-4.9); Potassium, Blood 5.1 mmol/L (3.5-5.5); Sodium, Blood 139 mmol/L (136-145)
--- NOTE | 2019-04-29 17:21 | NUR ---
Spiritual Care routine visit: Hannah was busy working on her computer. She reports frustration with paperwork required to recieve unemployment and disability benefits. She did not want to talk and was pleasantly dismissive. I will continue to check on Hannah as schedule permits.
--- NOTE | 2019-04-29 19:06 | NUR ---
PT A/O THROUGHOUT SHIFT. PT SAT IN CHAIR FOR PORTION OF THE SHIFT. PT TOOK A WALK THIS AFTERNOON. PT CALM, COOPERATIVE, AND PLEASANT. PT CURRENTLY RESTING IN BED.
--- NOTE | 2019-04-30 04:30 | NUR ---
SHIFT SUMMARY PT HAD NO ISSUES NOTED. PT WENT TO SLEEP EARLY IN SHIFT. PT CURRENTLY SLEEPING AND BREATHING EASY. CALL LIGHT IN REACH.
[2019-04-30 05:08] LABS: Hematocrit 35.1 % (33.0-51.0); Hemoglobin 11.2 g/dL (11.5-16.0); Mean Corpuscular HGB Conc 31.9 g/dL (31.5-36.5); Mean Corpuscular Volume 94 fL (80-100); Mean Platelet Volume 9.6 fL (9.1-12.4); Platelet Count 229 K/mm3 (150-400); RDW Coefficient Variation 13.5 % (11.7-14.2); RDW Standard Deviation 46.4 fL (35.1-46.3); Red Blood Cell Count 3.73 M/mm3 (3.80-5.20); White Blood Cell Count 8.28 K/mm3 (4.00-11.30)
[2019-04-30 05:59] LABS: Albumin, Blood 2.7 g/dL (3.4-5.0); Anion Gap 10 mmol/L (6-16); Blood Urea Nitrogen 65 mg/dL (8-24); Bun/Creatinine Ratio 9.1 (12.0-20.0); CO2, Blood 26 mmol/L (21-32); Calcium, Blood 8.9 mg/dL (8.5-10.1); Chloride, Blood 101 mmol/L (98-108); Creatinine, Blood 7.11 mg/dL (0.40-1.00); Glomerular Filtration Rate 6 (60-); Glucose, Blood 94 mg/dL (70-99); Magnesium, Blood 2.1 mg/dL (1.6-2.4); Phosphorus, Blood 5.4 mg/dL (2.5-4.9); Potassium, Blood 5.6 mmol/L (3.5-5.5); Sodium, Blood 137 mmol/L (136-145)
--- NOTE | 2019-04-30 17:04 | NUR ---
SHIFT SUMMARY PATIENT HAS HAD NO ACUTE CHANGES NOTED. SHE IS ORIENTED X4. STATES SHE HAS HAD SMALL FREQUENT BM THROUGHOUT THE DAY. NO COMPLAINTS NOTED. EAGER TO DISCHARGE.
--- NOTE | 2019-04-30 17:56 | NUR ---
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 pt states ambulating and eating symptoms are minimal. will review advance directive with her.
--- NOTE | 2019-05-01 04:18 | NUR ---
SHIFT SUMMARY NO ISSUES NOTED. PT HAS SLEPT WELL T/O THE SHIFT. PT CURRENTLY SLEEPING IN NO DISTRESS. CALL LIGHT IN REACH.
[2019-05-01 04:53] LABS: Hematocrit 35.2 % (33.0-51.0); Hemoglobin 11.3 g/dL (11.5-16.0)
[2019-05-01 05:23] LABS: Albumin, Blood 2.8 g/dL (3.4-5.0); Anion Gap 9 mmol/L (6-16); Blood Urea Nitrogen 48 mg/dL (8-24); Bun/Creatinine Ratio 7.9 (12.0-20.0); CO2, Blood 26 mmol/L (21-32); Calcium, Blood 8.7 mg/dL (8.5-10.1); Chloride, Blood 104 mmol/L (98-108); Glomerular Filtration Rate 7 (60-); Glucose, Blood 94 mg/dL (70-99); Magnesium, Blood 2.2 mg/dL (1.6-2.4); Phosphorus, Blood 4.9 mg/dL (2.5-4.9); Potassium, Blood 4.9 mmol/L (3.5-5.5); Sodium, Blood 139 mmol/L (136-145)
--- NOTE | 2019-05-01 18:27 | NUR ---
SHIFT SUMMARY SANCHEZ DIDN'T HAVE HD TODAY. L NEPH TUBE C/D/I AND DRAINING SMALL AMOUNT. PER CM, TO DC EARLY NEXT WEEK. PT AWARE. INDEP IN ROOM, DENIES PAIN, WENT OUTSIDE FOR SHORT WALK TODAY. TOOK MEDS PRESCRIBED. PLEASANT AND COOPERATIVE, NO NEEDS AT THIS TIME. CALL LIGHT IN REACH, TM
[2019-05-02 04:59] LABS: BASOPHILS ABSOLUTE AUTO 0.05 K/mm3 (0.00-0.23); BASOPHILS PERCENT AUTO 1 % (0-2); EOSINOPHILS ABSOLUTE AUTO 0.42 K/mm3 (0.00-0.68); EOSINOPHILS PERCENT AUTO 5 % (0-6); Hematocrit 34.5 % (33.0-51.0); Hemoglobin 11.3 g/dL (11.5-16.0); IMMATURE GRAN ABSOLUTE AUTO 0.16 K/mm3 (0.00-0.10); IMMATURE GRAN PERCENT AUTO 2 % (0-1); LYMPHOCYTES ABSOLUTE AUTO 2.66 K/mm3 (0.84-5.20); LYMPHOCYTES PERCENT AUTO 32 % (21-46); MONOCYTES ABSOLUTE AUTO 0.64 K/mm3 (0.16-1.47); MONOCYTES PERCENT AUTO 8 % (4-13); Mean Corpuscular HGB 29.8 pg (26.0-34.0); Mean Corpuscular HGB Conc 32.8 g/dL (31.5-36.5); Mean Platelet Volume 9.4 fL (9.1-12.4); NEUTROPHILS ABSOLUTE AUTO 4.44 K/mm3 (1.96-9.15); NEUTROPHILS PERCENT AUTO 53 % (41-73); Platelet Count 195 K/mm3 (150-400); RDW Coefficient Variation 13.7 % (11.7-14.2); Red Blood Cell Count 3.79 M/mm3 (3.80-5.20); White Blood Cell Count 8.37 K/mm3 (4.00-11.30)
[2019-05-02 05:00] LABS: Mean Corpuscular Volume 91 fL (80-100)
[2019-05-02 05:37] LABS: Magnesium, Blood 2.3 mg/dL (1.6-2.4)
[2019-05-02 05:44] LABS: Albumin, Blood 2.8 g/dL (3.4-5.0); Anion Gap 13 mmol/L (6-16); Blood Urea Nitrogen 77 mg/dL (8-24); Bun/Creatinine Ratio 9.7 (12.0-20.0); CO2, Blood 22 mmol/L (21-32); Calcium, Blood 8.6 mg/dL (8.5-10.1); Chloride, Blood 103 mmol/L (98-108); Creatinine, Blood 7.94 mg/dL (0.40-1.00); Glomerular Filtration Rate 5 (60-); Glucose, Blood 93 mg/dL (70-99); Phosphorus, Blood 5.9 mg/dL (2.5-4.9); Potassium, Blood 5.2 mmol/L (3.5-5.5); Sodium, Blood 138 mmol/L (136-145)
--- NOTE | 2019-05-02 07:26 | NUR ---
SHIFT SUMMARY PT IS A 63 Y/O FEMALE, ADMITTED FOR [facility]NY. PT IS A&O X 4, AND INDEPENDENT IN THE ROOM. SHE IS CURRENTLY ON HEMODIALYSIS WITH A PERMACATH IN THE R CHEST WALL. L NEPHROSTOMY IN PLACE, PATENT AND DRAINING. VITAL SIGNS STABLE. NO COMPLAINTS OF PAIN, NAUSEA OR SOB. NO ACUTE CHANGES IN PT CONDITION NOTED. REPORT GIVEN TO ONCOMING RN.
--- NOTE | 2019-05-02 17:11 | NUR ---
SUMMARY PT IS A/O X4, PLEASANT AFFECT. SHE STATE CONTINUING TO AWAIT INSURANCE APPROVAL FOR OUTPT DIALYSIS. STATE RCW PERMACATH SITE TENDER HOWEVER NOT PAINFUL THIS AM. GFR 5, DR MCMAHAN IN TO SEE HER THIS AM ORDER DIALYSIS TODAY. SITE SAFETY REPRESENTATIVE UP TO START HER @ 1400. L NEPHROSTOMY PATENT, COLEMAN LIGHT YELLOW URINE. ORDER IN CHART TO CONTACT DR VILLALTA SATURDAY TO DETERMINE WHEN TUBE WILL BE REMOVED. VSS.
[2019-05-03 04:39] LABS: Hematocrit 35.5 % (33.0-51.0); Hemoglobin 11.8 g/dL (11.5-16.0)
[2019-05-03 04:57] LABS: Albumin, Blood 2.9 g/dL (3.4-5.0); Anion Gap 10 mmol/L (6-16); Blood Urea Nitrogen 57 mg/dL (8-24); Bun/Creatinine Ratio 9.3 (12.0-20.0); CO2, Blood 28 mmol/L (21-32); Calcium, Blood 8.9 mg/dL (8.5-10.1); Chloride, Blood 98 mmol/L (98-108); Creatinine, Blood 6.16 mg/dL (0.40-1.00); Glomerular Filtration Rate 7 (60-); Glucose, Blood 91 mg/dL (70-99); Magnesium, Blood 2.3 mg/dL (1.6-2.4); Phosphorus, Blood 5.4 mg/dL (2.5-4.9); Potassium, Blood 4.9 mmol/L (3.5-5.5); Sodium, Blood 136 mmol/L (136-145)
--- NOTE | 2019-05-03 07:11 | NUR ---
SHIFT SUMMARY PT IS A 63 Y/O FEMALE, ADMITTED FOR [facility]NY AND CURRENTLY ON HEMODIALYSIS. SHE IS A&O X 4, AND INDEPENDENT IN THE ROOM. NO COMPLAINTS OF PAIN, NAUSEA OR SOB. VITAL SIGNS STABLE. NO ACUTE CHANGES IN PT CONDITION NOTED. REPORT GIVEN TO ONCOMING RN.
[2019-05-03 10:32] LABS: BASOPHILS ABSOLUTE AUTO 0.05 K/mm3 (0.00-0.23); BASOPHILS PERCENT AUTO 1 % (0-2); EOSINOPHILS PERCENT AUTO 4 % (0-6); Hematocrit 36.3 % (33.0-51.0); Hemoglobin 11.9 g/dL (11.5-16.0); IMMATURE GRAN ABSOLUTE AUTO 0.11 K/mm3 (0.00-0.10); IMMATURE GRAN PERCENT AUTO 1 % (0-1); LYMPHOCYTES PERCENT AUTO 28 % (21-46); MONOCYTES ABSOLUTE AUTO 0.56 K/mm3 (0.16-1.47); MONOCYTES PERCENT AUTO 6 % (4-13); Mean Corpuscular HGB 30.5 pg (26.0-34.0); Mean Corpuscular HGB Conc 32.8 g/dL (31.5-36.5); Mean Corpuscular Volume 93 fL (80-100); Mean Platelet Volume 10.1 fL (9.1-12.4); NEUTROPHILS ABSOLUTE AUTO 5.47 K/mm3 (1.96-9.15); NEUTROPHILS PERCENT AUTO 60 % (41-73); Platelet Count 168 K/mm3 (150-400); RDW Coefficient Variation 13.6 % (11.7-14.2); RDW Standard Deviation 45.8 fL (35.1-46.3); White Blood Cell Count 9.09 K/mm3 (4.00-11.30)
[2019-05-03 10:44] LABS: Albumin, Blood 2.9 g/dL (3.4-5.0); Albumin/Globulin Ratio 0.8 (0.8-1.8); Bilirubin, Total 0.3 mg/dL (0.1-1.0); Calcium, Blood 8.9 mg/dL (8.5-10.1); Creatinine, Blood 6.21 mg/dL (0.40-1.00); Globulin, Blood 3.5 g/dL (2.2-4.0); Potassium, Blood 4.8 mmol/L (3.5-5.5); Total Protein, Blood 6.4 g/dL (6.4-8.2)
--- NOTE | 2019-05-03 16:30 | NUR ---
SUMMARY DR MCMAHAN STATE NO DIALYSIS TODAY, WILL HAVE AGAIN TOMORROW. PT HAS BEEN PLEASANT T/O DAY, STATE NO DISCOMFORT. SHE CONTINUES TO AWAIT INSURANCE APPROVAL FOR OUTPT DIALYSIS. RCW PERMACATH DRSG INTACT. RE-ENFORCED L FLANK NEPHROSTOMY DRSG, TUBE CONTINUES PATENT, DRNG LIGHT YELLOW URINE. SHE HAD URINE VOID THIS AM. VSS. SHE IS LOOKING FORWARD TO MEETING w [facility] TOMORROW R/T SAFE D/C.
[2019-05-04 04:39] LABS: BASOPHILS ABSOLUTE AUTO 0.04 K/mm3 (0.00-0.23); BASOPHILS PERCENT AUTO 0 % (0-2); EOSINOPHILS ABSOLUTE AUTO 0.35 K/mm3 (0.00-0.68); EOSINOPHILS PERCENT AUTO 4 % (0-6); Hematocrit 34.7 % (33.0-51.0); Hemoglobin 11.4 g/dL (11.5-16.0); IMMATURE GRAN ABSOLUTE AUTO 0.09 K/mm3 (0.00-0.10); IMMATURE GRAN PERCENT AUTO 1 % (0-1); LYMPHOCYTES ABSOLUTE AUTO 2.77 K/mm3 (0.84-5.20); LYMPHOCYTES PERCENT AUTO 29 % (21-46); MONOCYTES ABSOLUTE AUTO 0.67 K/mm3 (0.16-1.47); MONOCYTES PERCENT AUTO 7 % (4-13); Mean Corpuscular HGB 30.2 pg (26.0-34.0); Mean Corpuscular HGB Conc 32.9 g/dL (31.5-36.5); Mean Corpuscular Volume 92 fL (80-100); Mean Platelet Volume 9.2 fL (9.1-12.4); NEUTROPHILS ABSOLUTE AUTO 5.64 K/mm3 (1.96-9.15); NEUTROPHILS PERCENT AUTO 59 % (41-73); Platelet Count 153 K/mm3 (150-400); RDW Coefficient Variation 13.7 % (11.7-14.2); RDW Standard Deviation 45.7 fL (35.1-46.3); Red Blood Cell Count 3.78 M/mm3 (3.80-5.20); White Blood Cell Count 9.56 K/mm3 (4.00-11.30)
[2019-05-04 05:06] LABS: Albumin, Blood 2.9 g/dL (3.4-5.0); Albumin/Globulin Ratio 0.9 (0.8-1.8); Bilirubin, Total 0.3 mg/dL (0.1-1.0); Bun/Creatinine Ratio 9.9 (12.0-20.0); Calcium, Blood 8.5 mg/dL (8.5-10.1); Creatinine, Blood 8.16 mg/dL (0.40-1.00); Globulin, Blood 3.3 g/dL (2.2-4.0); Phosphorus, Blood 6.1 mg/dL (2.5-4.9); Total Protein, Blood 6.2 g/dL (6.4-8.2)
--- NOTE | 2019-05-04 06:37 | NUR ---
SHIFT SUMMARY PT IS A 63 Y/O FEMALE, ADMITTED FOR [facility]ANNY AND CURRENTLY ON HEMODIALYSIS FOR ACUTE RENAL FAILURE. SHE IS A&O X 4, AND INDEPENDENT IN THE ROOM. PT DENIED ANY COMPLAINTS OF PAIN, NAUSEA OR SOB, AND SLEPT WELL DURING THE NIGHT. VITAL SIGNS STABLE. PT'S AM CREATININE WAS INCREASED COMPARED TO THE PREVIOUS, AND NOTED AT CRITICAL AT 8.16. DR MCMAHAN WAS NOTIFIED. NO CHANGES IN ORDERS AT THIS TIME. NO OTHER ACUTE CHANGES IN PT CONDITION NOTED. WILL CONTINUE TO MONITOR AND TREAT PER EMAR UNTIL HAND OFF TO DAY SHIFT RN.
--- NOTE | 2019-05-04 18:45 | NUR ---
SHIFT SUMMARY. A&OX4, INDEPENDENT IN ROOM. PT DENIES PAIN, SOB, N/V. DIALYSIS COMPLETED THIS AM. DRESSING TO PERMCATH C/D/I. DRESSING TO L NEPHROSTOMY TUBE C/D/I. PT AWAITING INSURANCE APPROVAL FOR DIALYSIS.
[2019-05-05 04:41] LABS: Hematocrit 36.4 % (33.0-51.0); Hemoglobin 11.7 g/dL (11.5-16.0)
[2019-05-05 05:02] LABS: Albumin, Blood 2.9 g/dL (3.4-5.0); Anion Gap 9 mmol/L (6-16); Blood Urea Nitrogen 60 mg/dL (8-24); Bun/Creatinine Ratio 8.9 (12.0-20.0); CO2, Blood 30 mmol/L (21-32); Chloride, Blood 97 mmol/L (98-108); Creatinine, Blood 6.74 mg/dL (0.40-1.00); Glomerular Filtration Rate 7 (60-); Glucose, Blood 95 mg/dL (70-99); Magnesium, Blood 2.4 mg/dL (1.6-2.4); Phosphorus, Blood 5.8 mg/dL (2.5-4.9); Potassium, Blood 4.6 mmol/L (3.5-5.5); Sodium, Blood 136 mmol/L (136-145)
--- NOTE | 2019-05-05 05:27 | NUR ---
SUMMARY: A/OX4, INDEPENDENT AND CALLS APPROPRIATELY. SHE DENIED PAIN AND COMPLAINTS THIS SHIFT AND SELF CARES FOR NEPHROSTOMY BY EMPTYING BAG PRN AND RECORDING UO ON WHITEBOARD. DX TO R.NEPHROSTOMY REMAINS C/D/I BUT LIKELY NEEDS CHANGED SINCE IT'S ONLY BEEN REINFORCED SINCE INITIAL APPLICATION. WILL ENSURE DAY STAFF IS AWARE. PT PASSED ON HAVING IT DONE THIS SHIFT. PERMCATH TO R.CW IS INTACT W/DX C/D/I. PT AWAITING INSURANCE APPROVAL FOR OUTPT DIALYSIS THEN WILL D/C. NO ACUTE CHANGES, VSS/AFEBRILE. WCTM AND REPORT TO DAY RN.
--- NOTE | 2019-05-05 18:44 | NUR ---
SHIFT SUMMARY. PT HAS NO COMPLAINTS. NO DIALYSIS TODAY SHE IS ON QOD. NO NEW CHANGES.
--- NOTE | 2019-05-05 22:57 | NUR ---
Dressing change to left back nephostomy site completed. No s/s infection noted.
--- NOTE | 2019-05-06 04:09 | NUR ---
Shift summary: Pt did well overnight. No significant changes. VSS. Pt slept most of shift. Dressing to left nephostomy tube changed. Pt anticipating dialysis today and awaiting approval for insurance before being discharged.
[2019-05-06 09:39] LABS: BASOPHILS ABSOLUTE AUTO 0.04 K/mm3 (0.00-0.23); BASOPHILS PERCENT AUTO 1 % (0-2); EOSINOPHILS ABSOLUTE AUTO 0.36 K/mm3 (0.00-0.68); EOSINOPHILS PERCENT AUTO 5 % (0-6); Hematocrit 35.8 % (33.0-51.0); Hemoglobin 11.6 g/dL (11.5-16.0); IMMATURE GRAN ABSOLUTE AUTO 0.03 K/mm3 (0.00-0.10); IMMATURE GRAN PERCENT AUTO 0 % (0-1); LYMPHOCYTES ABSOLUTE AUTO 1.88 K/mm3 (0.84-5.20); LYMPHOCYTES PERCENT AUTO 27 % (21-46); MONOCYTES ABSOLUTE AUTO 0.42 K/mm3 (0.16-1.47); MONOCYTES PERCENT AUTO 6 % (4-13); Mean Corpuscular HGB 30.6 pg (26.0-34.0); Mean Corpuscular HGB Conc 32.4 g/dL (31.5-36.5); Mean Platelet Volume 9.4 fL (9.1-12.4); NEUTROPHILS PERCENT AUTO 61 % (41-73); Platelet Count 177 K/mm3 (150-400); RDW Coefficient Variation 14.1 % (11.7-14.2); RDW Standard Deviation 48.1 fL (35.1-46.3); Red Blood Cell Count 3.79 M/mm3 (3.80-5.20); White Blood Cell Count 7.03 K/mm3 (4.00-11.30)
[2019-05-06 09:41] LABS: Mean Corpuscular Volume 95 fL (80-100)
[2019-05-06 10:14] LABS: Albumin, Blood 2.8 g/dL (3.4-5.0); Albumin/Globulin Ratio 0.8 (0.8-1.8); Bilirubin, Total 0.3 mg/dL (0.1-1.0); Bun/Creatinine Ratio 9.5 (12.0-20.0); Creatinine, Blood 8.72 mg/dL (0.40-1.00); Globulin, Blood 3.5 g/dL (2.2-4.0); Potassium, Blood 4.9 mmol/L (3.5-5.5); Total Protein, Blood 6.3 g/dL (6.4-8.2)
--- NOTE | 2019-05-06 15:04 | NUR ---
theraputic visit with patient for stress reduction.
--- NOTE | 2019-05-06 18:29 | NUR ---
SHIFT SUMMARY. PT DIALYSED TODAY. DRESSING TO L FLANK C/D/I, NEPHROSTOMY DRAINING CLEAR YELLOW URINE. PT DENIES PAIN, SOB, N/V.
--- NOTE | 2019-05-07 04:06 | NUR ---
Shift summary. Pt slept well overnight. No c/o discomfort. mediport in place left chest- no s/s infection. Nephrostomy in place left back- working well. Recieving dialysis every other day. Pt awaiting insurance approval before she can be discharged to out patient dialysis.
[2019-05-07 04:51] LABS: Hematocrit 34.5 % (33.0-51.0); Hemoglobin 11.1 g/dL (11.5-16.0)
[2019-05-07 05:10] LABS: Albumin, Blood 2.7 g/dL (3.4-5.0); Anion Gap 7 mmol/L (6-16); Blood Urea Nitrogen 57 mg/dL (8-24); Bun/Creatinine Ratio 9.1 (12.0-20.0); CO2, Blood 30 mmol/L (21-32); Calcium, Blood 8.9 mg/dL (8.5-10.1); Chloride, Blood 102 mmol/L (98-108); Creatinine, Blood 6.24 mg/dL (0.40-1.00); Glomerular Filtration Rate 7 (60-); Glucose, Blood 97 mg/dL (70-99); Magnesium, Blood 2.3 mg/dL (1.6-2.4); Phosphorus, Blood 5.6 mg/dL (2.5-4.9); Potassium, Blood 4.9 mmol/L (3.5-5.5); Sodium, Blood 139 mmol/L (136-145)
[2019-05-07 08:31] LABS: BASOPHILS ABSOLUTE AUTO 0.05 K/mm3 (0.00-0.23); BASOPHILS PERCENT AUTO 1 % (0-2); EOSINOPHILS ABSOLUTE AUTO 0.34 K/mm3 (0.00-0.68); EOSINOPHILS PERCENT AUTO 5 % (0-6); Hematocrit 34.3 % (33.0-51.0); Hemoglobin 11.1 g/dL (11.5-16.0); IMMATURE GRAN ABSOLUTE AUTO 0.04 K/mm3 (0.00-0.10); IMMATURE GRAN PERCENT AUTO 1 % (0-1); LYMPHOCYTES ABSOLUTE AUTO 2.43 K/mm3 (0.84-5.20); LYMPHOCYTES PERCENT AUTO 35 % (21-46); MONOCYTES ABSOLUTE AUTO 0.45 K/mm3 (0.16-1.47); MONOCYTES PERCENT AUTO 7 % (4-13); Mean Corpuscular HGB 29.9 pg (26.0-34.0); Mean Corpuscular HGB Conc 32.4 g/dL (31.5-36.5); Mean Corpuscular Volume 93 fL (80-100); NEUTROPHILS ABSOLUTE AUTO 3.66 K/mm3 (1.96-9.15); NEUTROPHILS PERCENT AUTO 52 % (41-73); Platelet Count 153 K/mm3 (150-400); RDW Coefficient Variation 14.1 % (11.7-14.2); RDW Standard Deviation 47.2 fL (35.1-46.3); Red Blood Cell Count 3.71 M/mm3 (3.80-5.20); White Blood Cell Count 6.97 K/mm3 (4.00-11.30)
[2019-05-07 08:53] LABS: Albumin, Blood 2.7 g/dL (3.4-5.0); Albumin/Globulin Ratio 0.8 (0.8-1.8); Bilirubin, Total 0.3 mg/dL (0.1-1.0); Bun/Creatinine Ratio 8.9 (12.0-20.0); Creatinine, Blood 6.37 mg/dL (0.40-1.00); Globulin, Blood 3.4 g/dL (2.2-4.0); Potassium, Blood 4.9 mmol/L (3.5-5.5); Total Protein, Blood 6.1 g/dL (6.4-8.2)
--- NOTE | 2019-05-07 17:49 | NUR ---
SHIFT SUMMARY PATIENT A & O X4, PLEASANT, UP AD MONTEZ IN ROOM. NO NEW CHANGES WITH CONDITION, PT DENIES PAIN, SOB, N/V. L FLANK NEPHROSTOMY DRAINING WELL, PATIENT EMPTIES HERSELF. R CHEST PERMACATH DRESSING C/D/I, PATIENT STATES SHE HAS LESS PAIN THERE SINCE THE DRESSING WAS CHANGED LAST. DC OPTICAL LATHE OPERATOR MET WITH PATIENT THIS EVENING ABOUT INSURANCE ISSUE, MAYBE WILL DC TOMORROW.
[2019-05-08 05:02] LABS: Hematocrit 33.7 % (33.0-51.0)
[2019-05-08 05:27] LABS: Magnesium, Blood 2.2 mg/dL (1.6-2.4)
[2019-05-08 05:40] LABS: Albumin, Blood 2.7 g/dL (3.4-5.0); Anion Gap 10 mmol/L (6-16); Blood Urea Nitrogen 84 mg/dL (8-24); Bun/Creatinine Ratio 9.9 (12.0-20.0); CO2, Blood 26 mmol/L (21-32); Chloride, Blood 99 mmol/L (98-108); Creatinine, Blood 8.49 mg/dL (0.40-1.00); Glomerular Filtration Rate 5 (60-); Glucose, Blood 89 mg/dL (70-99); Phosphorus, Blood 5.7 mg/dL (2.5-4.9); Potassium, Blood 5.1 mmol/L (3.5-5.5); Sodium, Blood 135 mmol/L (136-145)
--- NOTE | 2019-05-08 06:10 | NUR ---
SHIFT SUMMARY NO ACUTE EVENTS OVERNIGHT. PATIENT SLEPT IN BED THROUGHOUT OFFICE SERVICES REPRESENTATIVE. INDEPENDENT IN ROOM. WILL CONTINUE TO MONITOR AND REPORT TO ONCOMING RN.
--- NOTE | 2019-05-08 17:45 | NUR ---
SHIFT SUMMARY NO CHANGES TO PATIENT'S CONDITION. PATIENT HAD INPT DIALYSIS TODAY, DENIED ANY ADVERSE S/S. PT UP AD MONTEZ IN ROOM, COOPERTIVE WITH CARE, USES CALL BUTTON APPROPRIATELY. PT SHOWERED TODAY. DC PATIENT INFORMATION COORDINATOR JIHAN MET WITH PATIENT TODAY. R CHEST PERMACATH C/D/I, L NEPHROSTOMY DRAINING ADEQUATE CLEAR LIGHT YELLOW URINE. WILL CONTINUE TO MONITOR.
[2019-05-09 04:41] LABS: Hematocrit 32.2 % (33.0-51.0); Hemoglobin 10.4 g/dL (11.5-16.0)
[2019-05-09 04:59] LABS: Albumin, Blood 2.6 g/dL (3.4-5.0); Anion Gap 7 mmol/L (6-16); Blood Urea Nitrogen 50 mg/dL (8-24); Bun/Creatinine Ratio 8.3 (12.0-20.0); CO2, Blood 31 mmol/L (21-32); Chloride, Blood 102 mmol/L (98-108); Creatinine, Blood 6.02 mg/dL (0.40-1.00); Glomerular Filtration Rate 8 (60-); Glucose, Blood 94 mg/dL (70-99); Magnesium, Blood 2.1 mg/dL (1.6-2.4); Phosphorus, Blood 4.8 mg/dL (2.5-4.9); Potassium, Blood 4.9 mmol/L (3.5-5.5); Sodium, Blood 140 mmol/L (136-145)
--- NOTE | 2019-05-09 06:39 | NUR ---
SHIFT SUMMARY NO ACUTE EVENTS OVERNIGHT. PATIENT UP AD MONTEZ IN ROOM. NO COMPLAINTS OR CONCERNS. SLEPT THROUGHOUT NIGHT. WILL CONTINUE TO MONITOR.
--- NOTE | 2019-05-09 18:34 | NUR ---
SHIFT SUMMARY: NO ACUTE EVENTS TO REPORT THIS SHIFT. PT A&O; CALM AND COOPERATIVE WITH CARE; PATIENT UP AD MONTEZ IN ROOM. NO C/O PAIN OR NAUSEA THIS SHIFT. AWAITING PLAN FOR OUTPATIENT HEMODIALYSIS. WCTM.
[2019-05-10 05:07] LABS: Hematocrit 32.1 % (33.0-51.0); Hemoglobin 10.6 g/dL (11.5-16.0)
[2019-05-10 05:30] LABS: Albumin, Blood 2.7 g/dL (3.4-5.0); Anion Gap 7 mmol/L (6-16); Blood Urea Nitrogen 77 mg/dL (8-24); Bun/Creatinine Ratio 9.8 (12.0-20.0); CO2, Blood 28 mmol/L (21-32); Chloride, Blood 99 mmol/L (98-108); Creatinine, Blood 7.83 mg/dL (0.40-1.00); Glomerular Filtration Rate 6 (60-); Glucose, Blood 90 mg/dL (70-99); Magnesium, Blood 2.2 mg/dL (1.6-2.4); Potassium, Blood 5.1 mmol/L (3.5-5.5); Sodium, Blood 134 mmol/L (136-145)
--- NOTE | 2019-05-10 06:25 | NUR ---
SHIFT SUMMARY NO ACUTE EVENTS OVERNIGHT. PATIENT UP AMBULATING IN ROOM BY SELF. PATIENT REPORTS THAT BM'S HAVE BEEN "A LOT OF MUCUS" THE LAST "WEEK OR SO", BUT NOT DIAHRREA. WILL CONTINUE TO MONITOR AND REPORT TO ONCOMING RN.
--- NOTE | 2019-05-10 17:46 | NUR ---
SHIFT SUMMARY. PT DIALYSED TODAY, TOLERATED WELL. L NEPHROMSTOMY TUBE DRAINING YELLOW/CLEAR URINE, DRESSING C/D/I. PT DENIES PAIN, SOB, N/V. NO NEW CHANGES OR CONCERNS.
--- NOTE | 2019-05-11 04:51 | NUR ---
APPAREL MACHINERY INSTRUCTOR SUMMARY NO ACUTE CHANGES THIS SHIFT. PT AAOX4 AND PLEASANT. PT DENIES PAIN, SOB, N/V. NO COMPLAINTS FROM PT. STILL AWAITING INSURANCE APPROVAL FOR OUTPT DIALYSIS. VSS, WILL CONTINUE TO MONITOR.
[2019-05-11 04:59] LABS: Hematocrit 32.9 % (33.0-51.0); Hemoglobin 10.8 g/dL (11.5-16.0)
[2019-05-11 05:28] LABS: Albumin, Blood 2.7 g/dL (3.4-5.0); Anion Gap 5 mmol/L (6-16); Blood Urea Nitrogen 53 mg/dL (8-24); Bun/Creatinine Ratio 8.5 (12.0-20.0); CO2, Blood 31 mmol/L (21-32); Calcium, Blood 8.9 mg/dL (8.5-10.1); Chloride, Blood 96 mmol/L (98-108); Creatinine, Blood 6.23 mg/dL (0.40-1.00); Glomerular Filtration Rate 7 (60-); Glucose, Blood 94 mg/dL (70-99); Potassium, Blood 4.7 mmol/L (3.5-5.5); Sodium, Blood 132 mmol/L (136-145)
--- NOTE | 2019-05-11 18:01 | NUR ---
SHIFT SUMMARY. A&OX4, INDEPENDENT IN ROOM, NO SAFETY CONCERNS. PT DENIES PAIN, SOB, N/V. DRESSING TO R PERMCATH AND L NEPHROSTOMY TUBE C/D/I. NO DIALYSIS TODAY. AWAITING INSURANCE APPROVAL FOR OUTPATIENT DIALYSIS. NO NEW CHANGES OR CONCERNS.
[2019-05-12 04:30] LABS: Hematocrit 32.3 % (33.0-51.0); Hemoglobin 10.6 g/dL (11.5-16.0)
[2019-05-12 04:53] LABS: Magnesium, Blood 2.2 mg/dL (1.6-2.4)
[2019-05-12 04:56] LABS: Albumin, Blood 2.7 g/dL (3.4-5.0); Anion Gap 8 mmol/L (6-16); Blood Urea Nitrogen 75 mg/dL (8-24); Bun/Creatinine Ratio 9.3 (12.0-20.0); CO2, Blood 28 mmol/L (21-32); Calcium, Blood 8.7 mg/dL (8.5-10.1); Chloride, Blood 95 mmol/L (98-108); Creatinine, Blood 8.03 mg/dL (0.40-1.00); Glomerular Filtration Rate 5 (60-); Glucose, Blood 97 mg/dL (70-99); Phosphorus, Blood 5.5 mg/dL (2.5-4.9); Potassium, Blood 5.9 mmol/L (3.5-5.5); Sodium, Blood 131 mmol/L (136-145)
--- NOTE | 2019-05-12 05:12 | NUR ---
INGOT CAR OPERATOR SUMMARY NO ACUTE CHANGES THIS SHIFT. PT AAOX4 AND INDEPENDENT. PT HAD CRITICAL HIGH CREATININE WITH MORNING LABS CONSISTENT WITH VALUES SHE HAS HAD WHILE HERE. PT TO HAVE DIALYSIS LATER TODAY. VSS, WILL CONTINUE TO MONITOR.
[2019-05-12] MEDS ORDERED: Calcium Acetat667 MG PO (15:44)
--- NOTE | 2019-05-12 16:58 | NUR ---
DISCHARGE DISCHARGE MEDICATIONS AN INSTRUCTIONS EXPLAINED TO PATIENT. PATIENT STATED UNDERSTANDING. FOLLOW UP APPOINTMENTS SCHEDULED WITH PCP, DIALYSIS, AND DR. VILLALTA. PATIENT DID NOT HAVE IV ACCESS. BELONGINGS [facility] PATIENT. PATIENT AMBULATED TO PRIVATE VEHICLE WITH HER SONS.
== END 2019-05-12 16:25 | disposition home or self-care (01) | DRG 660 ==
LOC: DELPENDDIS → ER 14:44 → MEDS 19:00 → PCU 19:00 → MEDS 21:02 → ENPENDDIS 04-22 12:03 → MEDS 05-12 16:25
PROVIDERS: Family Medicine; Internal Medicine; Internal Medicine Nephrology; Physician Assistant; Surgery; ADMIT Internal Medicine
PROC: 30233N1 Transfusion of Nonautologous Red Blood Cells into Peripheral Vein, Percutaneous Approach (ICD-10-PCS; 2019-04-11)
PROC: 30233N1 Transfusion of Nonautologous Red Blood Cells into Peripheral Vein, Percutaneous Approach (ICD-10-PCS; 2019-04-11)
PROC: 0T143JD Bypass Left Kidney Pelvis to Cutaneous with Synthetic Substitute, Percutaneous Approach (ICD-10-PCS; 2019-04-19)
PROC: 5A1D70Z Performance of Urinary Filtration, Intermittent, Less than 6 Hours Per Day (ICD-10-PCS; 2019-04-19)
PROC: 02HV33Z Insertion of Infusion Device into Superior Vena Cava, Percutaneous Approach (ICD-10-PCS; principal; 2019-04-19 08:30)
PROC: 5A1D70Z Performance of Urinary Filtration, Intermittent, Less than 6 Hours Per Day (ICD-10-PCS; 2019-04-25)
PROC: 5A1D70Z Performance of Urinary Filtration, Intermittent, Less than 6 Hours Per Day (ICD-10-PCS; 2019-05-04)
PROC: 5A1D70Z Performance of Urinary Filtration, Intermittent, Less than 6 Hours Per Day (ICD-10-PCS; 2019-05-08)
DX: N13.6 Pyonephrosis (principal); E87.1 Hypo-osmolality and hyponatremia; E87.2 Acidosis; E87.0 Hyperosmolality and hypernatremia; N17.9 Acute kidney failure, unspecified; I12.9 Hypertensive chronic kidney disease with stage 1 through stage 4 chronic kidney disease, or unspecified chronic kidney disease; N18.3 Chronic kidney disease, stage 3 (moderate); D63.1 Anemia in chronic kidney disease; I16.0 Hypertensive urgency; R00.0 Tachycardia, unspecified; E83.51 Hypocalcemia; E83.42 Hypomagnesemia; E55.9 Vitamin D deficiency, unspecified; B96.1 Klebsiella pneumoniae [K. pneumoniae] as the cause of diseases classified elsewhere
CPT/HCPCS: 36415; 36416; 36430; 49180; 50432; 74176; 76770; 76998; 77001; 77012; 80048; 80053; 80069; 80074; 81001; 81050; 82248; 82272; 82306; 82330; 82550; 82565; 82570; 82784; 82947; 83516; 83520; 83690; 83735; 84100; 84156; 84165; 84166; 84300; 84484; 84540; 85014; 85018; 85025; 85027; 86038; 86256; 86317; 86334; 86335; 86850; 86900; 86901; 86923; 87077; 87086; 87186; 93005; 93010; 96365; 96375; 99152; 99153; 99285-25; A9270; C1729; C1750; C1769; C1887; C1894; C9113; J0360; J0610; J0690; J0696; J0881; J1100; J1644; J2250; J2405; J2704; J3010; J3475; J7030; J7040; J7050; J7070; P9016; Q9967

== ENCOUNTER 2019-06-12 18:05 | Emergency (ER) | payer OTHER ==
[~2019-06-12] VITALS: Ht 147.3 cm; Wt 50.8 kg
[~2019-06-12 18:05] MED LIST: ACET325 PO; Amlodipine Besy10 MG PO; Calcitriol0.5 MCG PO; Calcium Acetat667 MG PO; HYDR10 PO; LOSA25 PO; MAG6464 MG PO; METO25 PO; ONDA4ODT MM; Oyster Shell C500 MG PO; PANT20 PO; Prinivil10 MG PO; Vitamin D2000 UNIT PO
[2019-06-12 18:51] LABS: BASOPHILS ABSOLUTE AUTO 0.05 K/mm3 (0.00-0.23); BASOPHILS PERCENT AUTO 1 % (0-2); EOSINOPHILS ABSOLUTE AUTO 0.38 K/mm3 (0.00-0.68); EOSINOPHILS PERCENT AUTO 4 % (0-6); Hematocrit 33.1 % (33.0-51.0); Hemoglobin 10.8 g/dL (11.5-16.0); IMMATURE GRAN ABSOLUTE AUTO 0.05 K/mm3 (0.00-0.10); IMMATURE GRAN PERCENT AUTO 1 % (0-1); LYMPHOCYTES ABSOLUTE AUTO 3.73 K/mm3 (0.84-5.20); LYMPHOCYTES PERCENT AUTO 36 % (21-46); MONOCYTES ABSOLUTE AUTO 0.78 K/mm3 (0.16-1.47); MONOCYTES PERCENT AUTO 7 % (4-13); Mean Corpuscular HGB 31.3 pg (26.0-34.0); Mean Corpuscular HGB Conc 32.6 g/dL (31.5-36.5); Mean Corpuscular Volume 96 fL (80-100); Mean Platelet Volume 8.7 fL (9.1-12.4); NEUTROPHILS ABSOLUTE AUTO 5.52 K/mm3 (1.96-9.15); NEUTROPHILS PERCENT AUTO 53 % (41-73); Platelet Count 294 K/mm3 (150-400); RDW Coefficient Variation 14.7 % (11.7-14.2); RDW Standard Deviation 50.8 fL (35.1-46.3); Red Blood Cell Count 3.45 M/mm3 (3.80-5.20); White Blood Cell Count 10.51 K/mm3 (4.00-11.30)
[2019-06-12 19:08] LABS: International Normalized Ratio 1.06; Prothrombin Time Results 11.2 Sec (9.7-11.5)
[2019-06-12 19:16] LABS: Bilirubin, Total 0.3 mg/dL (0.1-1.0); Bun/Creatinine Ratio 8.3 (12.0-20.0); Calcium, Blood 10.5 mg/dL (8.5-10.1); Creatinine, Blood 6.51 mg/dL (0.40-1.00); Globulin, Blood 4.2 g/dL (2.2-4.0); Potassium, Blood 4.1 mmol/L (3.5-5.5); Total Protein, Blood 8.2 g/dL (6.4-8.2)
== END 2019-06-12 20:22 | disposition home or self-care (01) ==
LOC: ER 18:05
PROVIDERS: Physician Assistant
DX: T83.9XXA Unspecified complication of genitourinary prosthetic device, implant and graft, initial encounter (principal); Z91.048 Other nonmedicinal substance allergy status; Z79.899 Other long term (current) drug therapy
CPT/HCPCS: 36415; 80053; 85025; 85610; 99283

== ENCOUNTER 2019-08-13 19:19 | Emergency (ER) | payer OTHER ==
[~2019-08-13] VITALS: Ht 147.3 cm; Wt 50.8 kg
[2019-08-13] MEDS ORDERED: LOSA25 PO (19:28)
[2019-08-13] MEDS ORDERED: CLON.1 (19:28)
[2019-08-13] MEDS ORDERED: Calcium Acetat667 MG PO (19:29)
[2019-08-13 19:54] LABS: BASOPHILS ABSOLUTE AUTO 0.04 K/mm3 (0.00-0.23); BASOPHILS PERCENT AUTO 1 % (0-2); EOSINOPHILS ABSOLUTE AUTO 0.27 K/mm3 (0.00-0.68); EOSINOPHILS PERCENT AUTO 4 % (0-6); Hemoglobin 12.5 g/dL (11.5-16.0); IMMATURE GRAN ABSOLUTE AUTO 0.01 K/mm3 (0.00-0.10); IMMATURE GRAN PERCENT AUTO 0 % (0-1); LYMPHOCYTES ABSOLUTE AUTO 2.54 K/mm3 (0.84-5.20); LYMPHOCYTES PERCENT AUTO 37 % (21-46); MONOCYTES ABSOLUTE AUTO 0.39 K/mm3 (0.16-1.47); MONOCYTES PERCENT AUTO 6 % (4-13); Mean Corpuscular HGB 32.7 pg (26.0-34.0); Mean Corpuscular HGB Conc 34.7 g/dL (31.5-36.5); Mean Corpuscular Volume 94 fL (80-100); Mean Platelet Volume 8.6 fL (9.1-12.4); NEUTROPHILS ABSOLUTE AUTO 3.64 K/mm3 (1.96-9.15); NEUTROPHILS PERCENT AUTO 53 % (41-73); Platelet Count 208 K/mm3 (150-400); RDW Coefficient Variation 11.9 % (11.7-14.2); RDW Standard Deviation 41.6 fL (35.1-46.3); Red Blood Cell Count 3.82 M/mm3 (3.80-5.20); White Blood Cell Count 6.89 K/mm3 (4.00-11.30)
[2019-08-13 19:55] LABS: Calcium, Ionized (POC) 1.02 mmol/L (1.10-1.46); Chloride (POC) 91 mmol/L (98-108); Creatinine (POC) 4.3 mg/dL (0.6-1.0); Glucose (ISTAT POC) 108 mg/dL (70-99); Hemoglobin (POC) 12.9 g/dL (12.0-16.0); Potassium (POC) 3.7 mmol/L (3.5-5.5); Sodium (POC) 133 mmol/L (135-148); Total CO2 (POC) 32 mmol/L (21-32)
[2019-08-13 20:14] LABS: Alanine Aminotransfer (ALT/SGP 18 U/L (12-78); Albumin, Blood 3.3 g/dL (3.4-5.0); Albumin/Globulin Ratio 0.8 (0.8-1.8); Alk Phos 102 U/L (50-136); Anion Gap 7 mmol/L (6-16); Aspartate Aminotrans (AST/SGOT 22 U/L (12-37); Bilirubin, Total 0.2 mg/dL (0.1-1.0); Blood Urea Nitrogen 36 mg/dL (8-24); Bun/Creatinine Ratio 8.5 (12.0-20.0); CO2, Blood 29 mmol/L (21-32); Calcium, Blood 8.9 mg/dL (8.5-10.1); Chloride, Blood 95 mmol/L (98-108); Creatinine, Blood 4.23 mg/dL (0.40-1.00); Globulin, Blood 4.2 g/dL (2.2-4.0); Glomerular Filtration Rate 11 (60-); Glucose, Blood 107 mg/dL (70-99); Potassium, Blood 3.7 mmol/L (3.5-5.5); Sodium, Blood 131 mmol/L (136-145); Total Protein, Blood 7.5 g/dL (6.4-8.2); Troponin I <0.015 ng/mL (0.000-0.040)
== END 2019-08-13 21:13 | disposition home or self-care (01) ==
LOC: ER 19:19
PROVIDERS: Emergency Medicine
DX: I12.9 Hypertensive chronic kidney disease with stage 1 through stage 4 chronic kidney disease, or unspecified chronic kidney disease (principal); N18.9 Chronic kidney disease, unspecified; Z99.2 Dependence on renal dialysis; Z79.899 Other long term (current) drug therapy
CPT/HCPCS: 71045; 80047; 80053; 84484; 85014; 85025; 93005; 93010; 96374; 99284-25

== ENCOUNTER 2019-10-12 05:53 | Observation (INO) | payer OTHER ==
[~2019-10-12] VITALS: Ht 147.3 cm; Wt 56.2 kg
[~2019-10-12 05:53] MED LIST changes: +CLON.1; +LOSA50 PO; -METO25 PO; +METO50 PO
[2019-10-12 06:43] LABS: BASOPHILS ABSOLUTE AUTO 0.04 K/mm3 (0.00-0.23); BASOPHILS PERCENT AUTO 1 % (0-2); EOSINOPHILS ABSOLUTE AUTO 0.35 K/mm3 (0.00-0.68); EOSINOPHILS PERCENT AUTO 5 % (0-6); Hematocrit 29.4 % (33.0-51.0); Hemoglobin 10.1 g/dL (11.5-16.0); IMMATURE GRAN ABSOLUTE AUTO 0.02 K/mm3 (0.00-0.10); IMMATURE GRAN PERCENT AUTO 0 % (0-1); LYMPHOCYTES ABSOLUTE AUTO 2.59 K/mm3 (0.84-5.20); LYMPHOCYTES PERCENT AUTO 34 % (21-46); MONOCYTES ABSOLUTE AUTO 0.42 K/mm3 (0.16-1.47); MONOCYTES PERCENT AUTO 6 % (4-13); Mean Corpuscular HGB 32.8 pg (26.0-34.0); Mean Corpuscular HGB Conc 34.4 g/dL (31.5-36.5); Mean Corpuscular Volume 96 fL (80-100); Mean Platelet Volume 8.7 fL (9.1-12.4); NEUTROPHILS PERCENT AUTO 55 % (41-73); Platelet Count 223 K/mm3 (150-400); RDW Coefficient Variation 12.5 % (11.7-14.2); RDW Standard Deviation 43.7 fL (35.1-46.3); Red Blood Cell Count 3.08 M/mm3 (3.80-5.20); White Blood Cell Count 7.52 K/mm3 (4.00-11.30)
[2019-10-12 07:08] LABS: Bun/Creatinine Ratio 9.8 (12.0-20.0); Calcium, Blood 9.2 mg/dL (8.5-10.1); Creatinine, Blood 10.5 mg/dL (0.40-1.00); Potassium, Blood 4.6 mmol/L (3.5-5.5)
--- NOTE | 2019-10-12 13:55 | NUR ---
TO RECOVERY ROOM VIA BED. PERMACATH DRESSING DRY AND INTACT. PUNCTURE SITE ABOVE PERMACATH HAS MODERATE AMOUNT OF BLOOD ON DRESSING. BP IS ELEVATED SEE FLOWSHEET.
[2019-10-12] MEDS ORDERED: CLON.1 PO (14:29)
--- NOTE | 2019-10-12 14:45 | NUR ---
DR. VILLALTA TEXTED WITH BP RESULTS.
--- NOTE | 2019-10-12 14:48 | NUR ---
DR. VILLALTA'S OFFICE CALLED TO HAVE HIM CALL REGARDING BP RESULTS.
--- NOTE | 2019-10-12 15:00 | NUR ---
WRIST CUFF CHANGED TO ARM CUFFL. BP 179/92. MESSAGED DR. VILLALTA.
--- NOTE | 2019-10-12 15:02 | NUR ---
PUNCTURE SITE SATURATED. SIGHT IS TENDER.
--- NOTE | 2019-10-12 15:11 | NUR ---
CLOTH DOT REMOVED. MANUAL PRESSURE HELD BY NOVEMBER ARUN RT.
--- NOTE | 2019-10-12 15:17 | NUR ---
DR. VILLALTA NOTIFIED. STERI STRIP, MANUAL PRESSURE APPLIED.
--- NOTE | 2019-10-12 15:18 | NUR ---
CLOTH DOT AND MANUAL PRESSURE APPLIED.
--- NOTE | 2019-10-12 15:26 | NUR ---
DR. VILLALTA RETURNED MESSAGE. MANUAL PRESSURE CONTINUES.HOB 90 DEGREES.
--- NOTE | 2019-10-12 15:35 | NUR ---
MANUAL PRESSURE RELEASED. CLOTH DOT WITH HALF SATURATION. WILL MONITOR AND CHANGE DRESSING.
--- NOTE | 2019-10-12 15:57 | NUR ---
MANUAL PRESSURE HELD AGAIN AT PUNCTURE SITE. NEW CLOTH DOT APPLIED. DR VILLALTA NOTIFIED.
--- NOTE | 2019-10-12 16:00 | NUR ---
MANUAL PRESSURE APPLIED AGAIN (X3). JOE PATCH APPLIED BY Josh CALLAHAN RN AT 1616. MANUAL PRESSURE HELD.
--- NOTE | 2019-10-12 16:19 | NUR ---
DR. VILLALTA NOTIFIED.
--- NOTE | 2019-10-12 16:24 | NUR ---
REPORT GIVEN TO NIK AND Josh CALLAHAN RN.
--- NOTE | 2019-10-12 17:21 | NUR ---
1630 assumed care of patient from Roldan Dhaliwal. Continued to monitor newly placed Wilda patch to the neck insicion. Called office to inform Dr. Damon of skin oozing at the neck and redressing.
--- NOTE | 2019-10-12 17:22 | NUR ---
1700 Changed the gabriela patch to the neck, folded a new gabriela patch and placed an occlusive dressing on the neck. Patient is tender to touch but no hematoma noted. slight bruising noted. Unable to reach Dr. Damon. he is not in the office and not ansering phone or text message. ENcouraged patient to take her blood pressure medication when she arrived home NIBP is 170's SBP over 70 DBP. Patient feels well and dressed self. Reviewed all discharge instructions amd wheel chaired to private vehicle with her son. 17[address] Patient discharged. Will call Dr. Strange office in the a.m. if continued skin oozing or return to the ED if needed. Again was unable to reach Dr. Damon at office or by phone.
== END 2019-10-12 12:02 | disposition home or self-care (01) ==
LOC: ER 05:53 → EOR 05:56
PROVIDERS: Emergency Medicine; ADMIT Radiology Diagnostic Radiology
PROC: 0JH63XZ Insertion of Tunneled Vascular Access Device into Chest Subcutaneous Tissue and Fascia, Percutaneous Approach (ICD-10-PCS; principal; 2019-10-12)
DX: I12.0 Hypertensive chronic kidney disease with stage 5 chronic kidney disease or end stage renal disease (principal); N18.6 End stage renal disease; Z99.2 Dependence on renal dialysis; D63.1 Anemia in chronic kidney disease; Z79.899 Other long term (current) drug therapy
CPT/HCPCS: 36558; 76937; 80048; 85025; 99152; 99153; C1750; C1769; J1644; J2250; J3010; J7040

== ENCOUNTER 2019-10-12 18:23 | Emergency (ER) | payer OTHER ==
[~2019-10-12] VITALS: Ht 147.3 cm; Wt 56.2 kg
[~2019-10-12 18:23] MED LIST changes: +CLON.1 PO
== END 2019-10-12 19:41 | disposition home or self-care (01) ==
LOC: ER 18:23
DX: L76.22 Postprocedural hemorrhage of skin and subcutaneous tissue following other procedure (principal); I12.9 Hypertensive chronic kidney disease with stage 1 through stage 4 chronic kidney disease, or unspecified chronic kidney disease; N18.9 Chronic kidney disease, unspecified; Z99.2 Dependence on renal dialysis

== ENCOUNTER → 2019-10-14 | Outpatient (CLI) | payer OTHER ==
[2019-10-16 15:09] LABS: HPV 16 Negative (Negative); HPV 18 Negative (Negative); HPV OTHER HR TYPES Positive (Negative)
== END | disposition home or self-care (01) ==
LOC: LAB 18:12 → LAB SHORT 18:12
PROVIDERS: Family Medicine
DX: Z01.419 Encounter for gynecological examination (general) (routine) without abnormal findings (principal)
CPT/HCPCS: 87624; 87625; G0123

== ENCOUNTER 2019-11-20 07:54 | Day surgery (SDC) | payer OTHER | END 2019-11-20 22:58 | disposition home or self-care (01) | LOC: MOI US 07:54 → MOI MAM 08:15 → MOI US 22:58 | DX: D24.2 Benign neoplasm of left breast (principal) | CPT/HCPCS: 19083; 77065; A4648 ==

== ENCOUNTER → 2020-04-19 | Outpatient (CLI) | payer MEDICARE ==
[2020-04-19 10:09] LABS: CHOL/HDL RATIO 5.2; Cholesterol 217 mg/dL (50-200); Free Thyroxine 0.81 ng/dL (0.70-1.60); HDL Cholesterol 42 mg/dL (>39); LDL/HDL RATIO 3.1; Low Density Lipoprotein Chol 130 mg/dL (0-110); Triglycerides 227 mg/dL (30-160); Very Low Density Lipoprot Chol 45 mg/dL (6-32)
[2020-04-19 10:13] LABS: Triiodothyronine, Free 2.78 pg/mL (2.18-3.98)
== END | disposition home or self-care (01) ==
LOC: LAB 09:15 → LAB SHORT 09:15
PROVIDERS: Family Medicine
DX: I10 Essential (primary) hypertension (principal)
CPT/HCPCS: 80061; 84439; 84443; 84481

== ENCOUNTER → 2020-11-08 | Outpatient (CLI) | payer MEDICARE ==
[2020-11-10 17:10] LABS: HPV 16 Negative (Negative); HPV 18 Negative (Negative); HPV OTHER HR TYPES Positive (Negative)
== END | disposition home or self-care (01) ==
LOC: LAB 17:49 → LAB SHORT 17:49
PROVIDERS: Family Medicine
DX: R87.4 Abnormal immunological findings in specimens from female genital organs (principal)
CPT/HCPCS: 87624; 88142

== ENCOUNTER → 2020-11-23 | Outpatient (CLI) | payer MEDICARE | LOC: LAB SHORT 07:53 | DX: R87.610 Atypical squamous cells of undetermined significance on cytologic smear of cervix (ASC-US) (principal); R87.810 Cervical high risk human papillomavirus (HPV) DNA test positive | CPT/HCPCS: 88305 ==

== ENCOUNTER → 2021-06-01 | Outpatient (CLI) | payer MEDICARE ==
[2021-06-05 11:08] LABS: HPV 16 Negative (Negative); HPV 18 Negative (Negative); HPV OTHER HR TYPES Negative (Negative)
== END | disposition home or self-care (01) ==
LOC: LAB SHORT 11:07 → LAB 11:07
PROVIDERS: Obstetrics & Gynecology
DX: R87.610 Atypical squamous cells of undetermined significance on cytologic smear of cervix (ASC-US) (principal); R87.810 Cervical high risk human papillomavirus (HPV) DNA test positive
CPT/HCPCS: 87624; 88142

== ENCOUNTER 2023-10-13 19:25 | Observation (INO) | payer OTHER ==
[~2023-10-13] VITALS: Ht 147.3 cm; Wt 50.4 kg
[~2023-10-13 19:25] MED LIST changes: +ASPI81CH PO; +ATOR40TA PO; +BUME2 PO; +CALCIUM ACETAT667 MG PO; +CATAPRES0.2 M1 PO; +DOXY100 PO; -LOSA50 PO; +LOSARTAN POTAS100 M1 PO; +METO25 PO; -METO50 PO; +RENVELA800 MG PO; +SEVEC800 PO
[2023-10-13 19:46] LABS: BASOPHILS ABSOLUTE AUTO 0.05 K/mm3 (0.00-0.23); BASOPHILS PERCENT AUTO 1 % (0-2); EOSINOPHILS ABSOLUTE AUTO 0.25 K/mm3 (0.00-0.68); EOSINOPHILS PERCENT AUTO 3 % (0-6); Hematocrit 23.9 % (33.0-51.0); Hemoglobin 7.8 g/dL (11.5-16.0); IMMATURE GRAN ABSOLUTE AUTO 0.04 K/mm3 (0.00-0.10); IMMATURE GRAN PERCENT AUTO 1 % (0-1); LYMPHOCYTES ABSOLUTE AUTO 2.28 K/mm3 (0.84-5.20); LYMPHOCYTES PERCENT AUTO 27 % (21-46); MONOCYTES ABSOLUTE AUTO 0.51 K/mm3 (0.16-1.47); MONOCYTES PERCENT AUTO 6 % (4-13); Mean Corpuscular HGB 32.2 pg (26.0-34.0); Mean Corpuscular HGB Conc 32.6 g/dL (31.5-36.5); Mean Corpuscular Volume 99 fL (80-100); Mean Platelet Volume 9.7 fL (9.1-12.4); NEUTROPHILS PERCENT AUTO 63 % (41-73); Platelet Count 276 K/mm3 (150-400); RDW Coefficient Variation 15.5 % (11.7-14.2); RDW Standard Deviation 55.8 fL (35.1-46.3); Red Blood Cell Count 2.42 M/mm3 (3.80-5.20); White Blood Cell Count 8.53 K/mm3 (4.00-11.30)
[2023-10-13 19:50] LABS: Calcium, Ionized (POC) 0.95 mmol/L (1.10-1.46); Chloride (POC) 101 mmol/L (98-108); Creatinine (POC) 13.7 mg/dL (0.6-1.0); Glucose (ISTAT POC) 157 mg/dL (70-99); Hemoglobin (POC) 7.5 g/dL (12.0-16.0); Sodium (POC) 135 mmol/L (135-148); Total CO2 (POC) 23 mmol/L (21-32)
[2023-10-13 20:25] LABS: Albumin, Blood 2.2 g/dL (3.4-5.0); Albumin/Globulin Ratio 0.6 (0.8-1.8); Bilirubin, Total 0.3 mg/dL (0.1-1.0); Bun/Creatinine Ratio 6.6 (12.0-20.0); Creatinine, Blood 12.8 mg/dL (0.40-1.00); Globulin, Blood 3.6 g/dL (2.2-4.0); Total Protein, Blood 5.8 g/dL (6.4-8.2)
[2023-10-13] MEDS ORDERED: METOPROLOL TART25 MG PO (21:13)
[2023-10-13] MEDS ORDERED: Morphine Sulfate 4 MG/1 ML Injection IV PRN (23:10)
[2023-10-13] MEDS ORDERED: Ondansetron 4 MG TAB PO PRN (23:15)
[2023-10-13] MEDS ORDERED: FLU VACC QS2023-24(6MOS UP)/PF 60 MCG/0.5 ML SYRINGE IM ONE (23:15)
[2023-10-14 00:03] LABS: Anti-Xa UFH, PHA Monitoring <0.10 IU/mL
[2023-10-14] MEDS ORDERED: Heparin Sodium,Porcine/0.5 NS 500 ML IV SCH (00:10)
[2023-10-14] MEDS ORDERED: NS 1,000 ML IV SCH (00:15)
[2023-10-14 00:34] LABS: International Normalized Ratio 1.23; Prothrombin Time Results 12.8 Sec (9.7-11.5)
[2023-10-14 02:17] VITALS: BP 147/91
[2023-10-14 02:30] VITALS: BP 151/79
[2023-10-14 04:30] VITALS: BP 144/90
[2023-10-14 05:02] LABS: BASOPHILS ABSOLUTE AUTO 0.05 K/mm3 (0.00-0.23); BASOPHILS PERCENT AUTO 1 % (0-2); EOSINOPHILS ABSOLUTE AUTO 0.28 K/mm3 (0.00-0.68); EOSINOPHILS PERCENT AUTO 4 % (0-6); Hematocrit 22.9 % (33.0-51.0); Hemoglobin 7.3 g/dL (11.5-16.0); IMMATURE GRAN ABSOLUTE AUTO 0.04 K/mm3 (0.00-0.10); IMMATURE GRAN PERCENT AUTO 1 % (0-1); LYMPHOCYTES ABSOLUTE AUTO 2.49 K/mm3 (0.84-5.20); LYMPHOCYTES PERCENT AUTO 33 % (21-46); MONOCYTES ABSOLUTE AUTO 0.57 K/mm3 (0.16-1.47); MONOCYTES PERCENT AUTO 8 % (4-13); Mean Corpuscular HGB 31.5 pg (26.0-34.0); Mean Corpuscular HGB Conc 31.9 g/dL (31.5-36.5); Mean Corpuscular Volume 99 fL (80-100); Mean Platelet Volume 9.9 fL (9.1-12.4); NEUTROPHILS ABSOLUTE AUTO 4.15 K/mm3 (1.96-9.15); NEUTROPHILS PERCENT AUTO 55 % (41-73); Platelet Count 245 K/mm3 (150-400); RDW Coefficient Variation 15.5 % (11.7-14.2); RDW Standard Deviation 55.8 fL (35.1-46.3); Red Blood Cell Count 2.32 M/mm3 (3.80-5.20); White Blood Cell Count 7.58 K/mm3 (4.00-11.30)
--- NOTE | 2023-10-14 05:24 | NUR ---
SHIFT SUMMARY/ARRIVAL TO PCU NOTE: RECEIVED REPORT FROM CIVIL ENGINEER EMILY PIZARRO, PT SHORTLY ARRIVED TO PCU 19 ~0210 THIS AM. TRANSFERRED FROM ER [facility] TO PCU BED WITH MINIMAL ASSISTANCE. ARRIVED A/Ox4 AND COOPERATIVE WITH STAFF. ANSWERS QUESTIONS APPROPRIATELY AND ABLE TO MAKE HER NEEDS KNOWN. CARDIAC, ARRIVED IN SR RANGING 60-70'S. REPORTED INTERMITTENT CHEST PRESSURE IN THE ER, BUT DENIED UPON ARRIVAL TO PCU. SBP HAS BEEN STABLE RANGING 140-150'S. RESPIRATORY, MAINTAINS SPO2 >90% ON RA. REPORTS SOME EXERTIONAL DYSPNEA WITH MODERATE EXERTION. GI/, ABLE TO AMBULATE TO [facility] WITH MINIMAL STAFF ASSISTANCE. PT REPORTS UNDERGOING PERITONEAL DIALYSIS FOR ABOUT FIVE YEARS NOW. PD CATH NOTED ON RUQ. HEPARIN gtt IS BEING MANAGED BY PHARMACY AND IS INFUSING PER EMAR. NS INFUSING ORDERED. PT TO BE TRANSFERRED TO [facility] THIS AM. NO NEW ORDERS AT THIS TIME, WILL REPORT TO ONCOMING RN. KATIE OWENS OF THIS NOTE.
[2023-10-14 06:18] LABS: Albumin, Blood 2.1 g/dL (3.4-5.0); Albumin/Globulin Ratio 0.6 (0.8-1.8); Bilirubin, Total 0.3 mg/dL (0.1-1.0); Calcium, Blood 7.9 mg/dL (8.5-10.1); Globulin, Blood 3.3 g/dL (2.2-4.0); Potassium, Blood 5.3 mmol/L (3.5-5.5); Total Protein, Blood 5.4 g/dL (6.4-8.2)
[2023-10-14 06:21] LABS: Bun/Creatinine Ratio 6.8 (12.0-20.0); Creatinine, Blood 13.4 mg/dL (0.40-1.00)
[2023-10-14 06:29] VITALS: BP 144/90
--- NOTE | 2023-10-14 06:54 | NUR ---
UPDATE: REPORT GIVEN TO Ronni TAFOYASA. ALL QUESTIONS ANSWERED. HEPARIN gtt INFUSING PER EMAR. VSS, NADN OF THIS NOTE
[2023-10-14] MEDS ORDERED: Metoprolol Tartrate 25 MG Tab PO SCH (08:14)
[2023-10-14] MEDS ORDERED: Calcium Acetate 667 MG Gel Cap PO SCH (08:30)
[2023-10-14] MEDS ORDERED: Aspirin 81 MG Chew PO SCH (09:00)
[2023-10-14] MEDS ORDERED: Bumetanide 1 MG Tab PO SCH (09:00)
[2023-10-14] MEDS ORDERED: Atorvastatin 40 MG Tab PO SCH (09:00)
[2023-10-14] MEDS ORDERED: CloNIDine HCl 0.2 MG Tab PO SCH (09:00)
[2023-10-14] MEDS ORDERED: Losartan Potassium 50 MG Tab PO SCH (09:00)
== END 2023-10-14 08:16 | disposition short-term general hospital (02) ==
LOC: ER 19:25 → ERHOLD 19:26 → PCU 19:26
PROVIDERS: Student in an Organized Health Care Education/Training Program; ADMIT Student in an Organized Health Care Education/Training Program
DX: I12.0 Hypertensive chronic kidney disease with stage 5 chronic kidney disease or end stage renal disease (principal); N18.6 End stage renal disease; E87.5 Hyperkalemia; E88.09 Other disorders of plasma-protein metabolism, not elsewhere classified; D64.9 Anemia, unspecified; N25.81 Secondary hyperparathyroidism of renal origin; Z79.899 Other long term (current) drug therapy; Z99.2 Dependence on renal dialysis
CPT/HCPCS: 36415; 71046; 80047; 80053; 83880; 84484; 85014; 85025; 85520; 85610; 85730; 96361; 96365; 99285-25; G0378; J1644; J7030